=== PATIENT | female | born 1960 | race Caucasian/White ===

== ENCOUNTER 2016-09-20 11:53 | Emergency (ER) | payer BC ==
[~2016-09-20] VITALS: Ht 160 cm; Wt 78.0 kg
[2016-09-20 11:59] VITALS: TEMP 36.8; Ht 160 cm; Wt 78.0 kg
[2016-09-20] MEDS ORDERED: OXYMETAZOLINE HCL 0.05% NA SPR 15 ML BTL ONE (12:25)
[2016-09-20] MEDS ORDERED: SILVER NITR/POTASSIUM NITRATE APPLICATOR ONE (12:28)
--- NOTE | 2016-09-20 13:59 | EMERGENCY ROOM VISIT NOTE ---
History Report prepared by Loreibrakan: Zeke Byrne Under the Supervision of: Dr. Yony Alvarez M.D. First contact with patient: 12:20 Chief Complaint: NOSE BLEED (MINOR) Stated Complaint: NOSE BLEED, STARTED 6:30 PM 09/19/16 History of Present Illness The patient is a 55 year old female who presents to the Emergency Room with complaints of a constant nosebleed beginning yesterday. She states that it began bleeding 18 hours ago, stopped for awhile, and then started bleeding again. She has no history of nosebleeds, and is not on any blood thinners. The patient notes that she had a sinus infection and was on Cipro a little over a week ago. She also notes that she was blowing her nose frequently at this time. She states that she put ice on her nose, but nothing has improved her symptoms. The patient denies any lightheadedness. Source of History: patient Onset: Yesterday Position: nose Quality: other (bleeding) Timing: constant Modifying Factors (Relieving): other (none) Note: The patient denies any lightheadedness. Review of Systems See HPI for pertinent positives & negatives. A total of 6 systems reviewed and were otherwise negative. Past Medical & Surgical Medical Problems: (1) No Known Active Medical Problems Family History No pertinent family history stated. Social History Housing Status: lives with family Current/Historical Medications No Active Prescriptions or Reported Meds Allergies Coded Allergies: No Known Allergies (Unverified , 09/20/16) Physical Exam Vital Signs Date Time Temp Pulse Resp B/P Pulse Ox O2 Delivery O2 Flow Rate FiO2 09/20/16 14:05 89 20 142/90 92 09/20/16 13:43 80 20 128/85 94 Room Air 09/20/16 11:59 36.8 108 18 160/106 98 Physical Exam GENERAL: Patient is well appearing and in no acute distress. HEENT: No acute trauma, normocephalic atraumatic, mucous membranes moist, no scleral icterus. Erythematous, swollen vessel in the left anterior nasal septum. NECK: No stridor, no adenopathy, no meningismus, trachea is midline. LUNGS: No dyspnea. Clear to auscultation and equal bilaterally. No wheeze, no rhonchi. HEART: Regular rate and rhythm. No murmurs, rubs, gallops appreciated. EXTREMITIES: Normal motion all extremities, no cyanosis, no edema. NEUROLOGIC: Alert and oriented, no acute motor or sensory deficits, no focal weakness, cranial nerves grossly intact. SKIN: No rash, no jaundice, no diaphoresis. Medical Decision & Procedures Procedure Anterior Nasal Cauterization Indication: epistaxis Verbal consent obtained. Risks and benefits were explained with the usual customary discussion. A time out was taken. Silver nitrate was applied to the left anterior nasal septum. Water followed by Afrin was applied to the nasal septum. The patient tolerated this well. Hemostasis was achieved. No complications. ED Course 1220: The patient was evaluated in room C5. A complete history and physical exam was performed. 1225: Ordered Afrin 0.05% Nasal [place] and Silver Nitrate Applicators. 1235: I cauterized the patient's nose. See the procedure note for details. 1302: I checked in on the patient and removed her nasal clamp. She is no longer bleeding. 1358: Reevaluated the patient. She has had no further bleeding. Discussed results and discharge instructions: she verbalized understanding and agreement. The patient is ready for discharge. Medical Decision Differential: Anterior/Posterior Epistaxis, Coagulopathy, Trauma, Fracture, Septal Hematoma, amongst other pathologies entertained. 55 yr old female arrives with complaint of left nares epistaxis currently resolved. Looking she clearly has imitated vessel left anterior septum. Cauterized without issue. Monitored for an hour without further bleeding. Stable, no PMH and not on blood thinners without any other bleeding nor abnormal bruising.. Did just have sinus infection which likely is reason for this. Discussed home care and approach. Discussed symptoms requiring return to ED. Impression Primary Impression: Left-sided epistaxis Scribe Attestation The scribe's documentation has been prepared under my direction and personally reviewed by me in its entirety. I confirm that the note above accurately reflects all work, treatment, procedures, and medical decision making performed by me. Departure Information Dispostion Home / Self-Care Prescriptions No Active Prescriptions or Reported Meds Referrals Morgan Starks DO (PCP) Patient Instructions A Signature Page, ED Robert, My [facility]
[2016-09-20 14:05] VITALS: BP 142/90; PULSE 89; O2SAT 92
[2017-06-02] MEDS ORDERED: CPR500 OR (12:20)
[2017-06-02] MEDS ORDERED: TAMS0.4C38 PO (12:50)
[2017-06-07] MEDS ORDERED: CIPR-255 PO (13:29)
[2017-06-07] MEDS ORDERED: TAMS0.4C38 PO (13:29)
[2017-07-08] MEDS ORDERED: CEPH500C PO (12:20)
[2017-07-08] MEDS ORDERED: OXYC7.5T65 PO (12:20)
[2017-07-08] MEDS ORDERED: PHEN-775 PO (12:20)
== END 2016-09-20 14:19 | disposition home or self-care (01) ==
LOC: C.EDB 11:54 → C.EDC 14:19
DX: R04.0 Epistaxis (principal)

== ENCOUNTER 2017-05-30 21:19 | Inpatient (IN) | payer BC ==
[~2017-05-30] VITALS: Ht 162.6 cm; Wt 85.6 kg
[2017-05-30] MEDS ORDERED: ONDANSETRON INJ 2 MG/ML 2 ML VIAL ONE (21:44)
[2017-05-30] MEDS ORDERED: ACETAMINOPHEN IV 100 ML IV STA (21:47)
[2017-05-30] MEDS ORDERED: SODIUM CHLORIDE 0.9% 1000ML 1,000 ML IV STA (21:47)
[2017-05-30] MEDS ORDERED: ONDANSETRON INJ 2 MG/ML 2 ML VIAL IV STA ×2 (21:47→22:30)
[2017-05-30] MEDS ORDERED: MoRPHine SULFATE 4 MG/ML 1 ML CARP\\VIAL IV STA ×2 (21:47→22:30)
[2017-05-30 21:59] LABS: BASO % 0.3 %; BASO ABS # 0.04 K/uL (0-0.2); COMPLETE YES; EOS % 0.7 %; HEMATOCRIT 43.7 % (37-47); IG% 0.3 %; LYMPH % 17.5 %; MEAN CELL VOLUME 89.4 fL (80-100); MEAN CORPUSCULAR HEMOGLOBIN 29.2 pg (25-34); MEAN CORPUSCULAR HGB CONC 32.7 g/dl (32-36); MEAN PLATELET VOLUME 8.9 fL (7.4-10.4); MONO % 6.6 %; NEUT % 74.6 %; PLATELET COUNT 406 K/uL (130-400); RED BLOOD COUNT 4.89 M/uL (4.2-5.4); WHITE BLOOD COUNT 14.88 K/uL (4.8-10.8)
[2017-05-30 22:11] LABS: BUN/CREATININE RATIO 15.1 (10-20); CALCIUM 9.1 mg/dl (8.5-10.1); CREATININE 0.79 mg/dl (0.60-1.20); POTASSIUM 3.7 mmol/L (3.5-5.1)
--- NOTE | 2017-05-30 22:22 | DIAGNOSTIC IMAGING REPORT ---
ABD/PELVIS WITHOUT FOR STONE CT DOSE: 1059.16 mGy.cm HISTORY: Flank pain Flank pain, eval for stone TECHNIQUE: Multiaxial CT images of the abdomen and pelvis were performed without the use of intravenous and oral contrast according to the standard department stone protocol. A dose lowering technique was utilized adhering to the principles of ALARA. COMPARISON STUDY: 12/28/2007 FINDINGS: Lung bases are clear. Several left renal cysts. Fullness of the renal collecting systems bilaterally. Right-sided renal calcifications slightly increased in prominence from the prior study. Largest calcification within the renal pelvis measures 9 mm. Smaller calcifications lower aspect left kidney are present. Slight fullness of the right ureter as compared to the left. 3 mm calculus right ureterovesical junction. Bladder is midline with no additional calcifications. Bowel pattern is nonobstructive. Scattered colonic diverticuli with no evidence of diverticulitis. IMPRESSION: 1. Bilateral nephrocalcinosis slightly progressive as compared to the prior exam in size as well as number. 2. 3 mm obstructing calculus right ureterovesical junction with mild right hydroureteronephrosis. The above report was generated using voice recognition software. It may contain grammatical, syntax or spelling errors. Electronically signed by: Rubio Pathak M.D. 05/30/2017 10:20 PM Dictated Date/Time: 05/30/2017 10:16 PM
[2017-05-30] MEDS ORDERED: KETOROLAC TROMETHAMINE 30 MG/ML VIAL IV STA (22:30)
[2017-05-30] MEDS ORDERED: TAMSULOSIN HCL 0.4 MG CAP PO ONE (22:30)
--- NOTE | 2017-05-30 22:32 | EMERGENCY ROOM VISIT NOTE ---
History First contact with patient: 21:43 Chief Complaint: FLANK PAIN Stated Complaint: RIGHT SIDE & BACK PAIN, VOMITING History of Present Illness The patient is a 56 year old female who presents to the Emergency Room with complaints of right flank pain that started suddenly around 7pm today. She states she was not feeling well today and had some intermittent chills and nausea. Her right flank pain started suddenly, associated with severe nausea and intractable vomiting. She describes the pain as constant, sharp and stabbing, severe, starts in her right back and radiates around to her abdomen down toward her groin, 06/29. She tried taking some Pepto-Bismol for the nausea , which did not help. She did not take any other medications for her pain. She reports a history of kidney stones in the past, states this feels the same. She denies any fevers, headache, vision changes, neck pain, chest pain, shortness of breath, palpitations, dizziness or syncope, numbness or tingling, diarrhea or constipation, dysuria, urinary frequency, hematuria. Review of Systems A complete 10 point review of systems was reviewed with the patient with pertinent positives and negatives as per history of present illness. All else were negative. Past Medical/Surgical History Medical Problems: (1) Hydronephrosis due to obstruction of ureter (2) No Known Active Medical Problems (3) Pyelonephritis Social History Smoking Status: Never Smoker Housing Status: lives with family Current/Historical Medications Scheduled Levofloxacin (Levaquin), 750 MG PO DAILY Naproxen (Naprosyn), 500 MG PO BID Ondasetron Odt (Zofran Odt), 4 MG SL Q6H Tamsulosin Hcl (Flomax), 0.4 MG PO DAILY Scheduled PRN Oxycodone Ir (Roxicodone Ir), 1-2 TAB PO Q6H PRN for Severe Pain Physical Exam Vital Signs Date Time Temp Pulse Resp B/P (MAP) Pulse Ox O2 Delivery O2 Flow Rate FiO2 05/31/17 03:01 132/79 98 Room Air 05/31/17 03:00 75 18 05/31/17 02:49 64 05/31/17 02:42 130/73 05/31/17 01:00 70 18 132/96 95 Room Air 05/30/17 22:40 69 05/30/17 22:24 65 18 135/89 98 Room Air 05/30/17 21:23 36.4 72 24 123/80 99 Room Air Physical Exam CONSTITUTIONAL: No acute distress, but patient appears to be in significant pain and is actively vomiting. Mildly dehydrated. Alert and oriented X 4 with normal affect. HEENT: Normocephalic, atraumatic. Pupils equal, round and reactive to light, EOMI. TMs normal. Pharynx normal. Tacky mucous membranes. NECK: Supple, full active range of motion without discomfort. RESPIRATORY: Clear to auscultation bilaterally with no wheezing, crackles, rhonchi or stridor. Equal expansion bilaterally. CARDIOVASCULAR: Regular rate and rhythm with no murmurs, rubs or gallops. Normal peripheral perfusion. No edema. GASTROINTESTINAL: Moderate tenderness of the right upper and lower quadrant and flank, right CVA tenderness. Abdomen is soft and nondistended. Bowel sounds present in all quadrants. MUSCULOSKELETAL: Full range of motion of all joints without discomfort. INTEGUMENTARY: No rash or other significant dermatologic conditions noted. NEUROLOGIC: Cranial nerves II-XII grossly intact. No focal neurologic deficits noted. Normal strength, normal sensation, normal gait, normal coordination, normal speech. Medical Decision & Procedures ER Provider Diagnostic Interpretation: ABD/PELVIS WITHOUT FOR STONE CT DOSE: 1059.16 mGy.cm HISTORY: Flank pain Flank pain, eval for stone TECHNIQUE: Multiaxial CT images of the abdomen and pelvis were performed without the use of intravenous and oral contrast according to the standard department stone protocol. A dose lowering technique was utilized adhering to the principles of ALARA. COMPARISON STUDY: 12/28/2007 FINDINGS: Lung bases are clear. Several left renal cysts. Fullness of the renal collecting systems bilaterally. Right-sided renal calcifications slightly increased in prominence from the prior study. Largest calcification within the renal pelvis measures 9 mm. Smaller calcifications lower aspect left kidney are present. Slight fullness of the right ureter as compared to the left. 3 mm calculus right ureterovesical junction. Bladder is midline with no additional calcifications. Bowel pattern is nonobstructive. Scattered colonic diverticuli with no evidence of diverticulitis. IMPRESSION: 1. Bilateral nephrocalcinosis slightly progressive as compared to the prior exam in size as well as number. 2. 3 mm obstructing calculus right ureterovesical junction with mild right hydroureteronephrosis. Laboratory Results Test 05/30/17 21:45 05/31/17 00:02 Total Bilirubin 0.5 mg/dl (0.2-1) Direct Bilirubin 0.1 mg/dl (0-0.2) Aspartate Amino Transf (AST/SGOT) 18 U/L (15-37) Alanine Aminotransferase (ALT/SGPT) 28 U/L (12-78) Alkaline Phosphatase 76 U/L (45-117) Total Protein 7.7 gm/dl (6.4-8.2) Albumin 3.8 gm/dl (3.4-5.0) Lipase 235 U/L (73-393) Urine Color YELLOW Urine Appearance CLEAR (CLEAR) Urine pH 5.0 (4.5-7.5) Urine Specific [place] 1.022 (1.000-1.030) Urine Protein NEG (NEG) Urine Glucose (UA) NEG (NEG) Urine Ketones TRACE (NEG) Urine Occult Blood 1+ (NEG) Urine Nitrite POS (NEG) Urine Bilirubin NEG (NEG) Urine Urobilinogen NEG (NEG) Urine Leukocyte Esterase SMALL (NEG) Urine WBC (Auto) >30 /hpf (0-5) Urine RBC (Auto) 0-4 /hpf (0-4) Urine Hyaline Casts (Auto) 1-5 /lpf (0-5) Urine Epithelial Cells (Auto) 10-20 /lpf (0-5) Urine Bacteria (Auto) 4+ (NEG) Medications Administered Medications (Trade) Dose Ordered Sig/Dipesh Route Start Time Stop Time Status Last Admin Dose Admin Ondansetron HCl (Zofran Inj) 4 mg STK-MED ONCE .ROUTE 05/30/17 21:44 05/30/17 21:45 DC 05/30/17 21:57 4 MG Sodium Chloride 1,000 ml @ 999 mls/hr Q1H1M STAT IV 05/30/17 21:47 05/30/17 22:47 DC 05/30/17 21:47 999 MLS/HR Morphine Sulfate (MoRPHine SULFATE INJ) 4 mg NOW STAT IV 05/30/17 21:47 05/30/17 21:49 DC 05/30/17 21:57 4 MG Acetaminophen 100 ml @ 400 mls/hr NOW STAT IV 05/30/17 21:47 05/30/17 22:01 DC 05/30/17 21:56 400 MLS/HR Ondansetron HCl (Zofran Inj) 4 mg NOW STAT IV 05/30/17 22:30 05/30/17 22:31 DC 05/30/17 22:35 4 MG Ketorolac Tromethamine (Toradol Inj) 15 mg NOW STAT IV 05/30/17 22:30 05/30/17 22:31 DC 05/30/17 22:36 15 MG Morphine Sulfate (MoRPHine SULFATE INJ) 4 mg NOW STAT IV 05/30/17 22:30 05/30/17 22:31 DC 05/30/17 22:35 4 MG Tamsulosin HCl (Flomax Cap) 0.4 mg NOW ONCE PO 05/30/17 22:30 05/30/17 22:31 DC 05/30/17 22:35 0.4 MG Levofloxacin (Levaquin / D5W) 750 mg NOW STAT IV 05/31/17 01:23 05/31/17 01:24 DC 05/31/17 01:44 750 MG Morphine Sulfate (MoRPHine SULFATE INJ) 4 mg NOW STAT IV 05/31/17 01:40 05/31/17 01:41 DC 05/31/17 01:44 4 MG Promethazine HCl (Phenergan Inj) 25 mg NOW STAT IM 05/31/17 03:07 05/31/17 03:08 DC 05/31/17 03:24 25 MG Sodium Chloride 1,000 ml @ 999 mls/hr Q1H1M STAT IV 05/31/17 03:49 05/31/17 04:49 DC 05/31/17 04:51 999 MLS/HR ECG Indication: abdominal pain, vomiting Rate (beats per minute): 64 Rhythm: normal sinus Findings: no acute ischemic change, no ectopy, other (normal EKG) Comparison ECG Date: no prior available Medical Decision CC: Patient presenting with complaint of right flank pain, nausea and vomiting Interpretation of Labs: Leukocytosis, no anemia, no significant electrolyte abnormalities, normal renal function, normal liver enzymes and lipase. UA pending. Differential Diagnosis: Includes, but not limited to kidney stone, ureteral colic, UTI, pyelonephritis, cholecystitis, cholelithiasis, choledocholithiasis, pancreatitis, appendicitis, AAA. Medication Reconciliation: I attest that I have personally reviewed the patient' s current medication list. Vital signs review: I reviewed the patient's vital signs and interpret them as follows: T: Afebrile; BP: Normotensive; HR: Within normal limits; RR: Tachypneic; Pulse Ox: Within normal limits on room air. Blood pressure screening: The patient was found to have normal blood pressure on screening and does not require follow-up for repeat blood pressure check. Summary: Patient was evaluated at bedside, history of physical exam performed. Patient is alert and in no acute distress but is very uncomfortable and actively vomiting. She is rocking in the stretcher, unable to get comfortable. She has moderate right-sided abdominal and flank pain, right CVA tenderness. Patient's symptoms and colicky pain consistent with possible ureteral stone, especially given her history of this in the past Orders were placed at bedside for labs, UA, IV fluids for hydration, IV morphine and Tylenol for pain, IV Zofran for nausea, CT abdomen/pelvis without contrast to evaluate for ureteral stone. Patient discussed with Dr. Leger, who agrees with my assessment and plan. Labs reviewed as above, notable for leukocytosis, which may be related to patient's severe episodes of vomiting, though cannot fully rule out possible infection. Urinalysis pending. No other acute lab abnormalities. CT imaging reviewed, reveals a 3 mm obstructing distal stone on the right side, correlating to patient's symptoms. Nursing notified me that patient was still having 8/10 pain and vomiting again. Second dose of IV morphine, IV Zofran ordered, as well as IV Toradol. She was also given PO Flomax. Patient reassessed multiple times throughout ED stay, she is much improved after second dosing of medications. She states she feels well enough to go home and would prefer to be discharged. I discussed all results with the patient and the plan for follow-up. Prescriptions for pain meds, Zofran, and Flomax sent to the pharmacy. Patient to be discharged home with a urine straining. Still awaiting urine sample from patient, I asked her to provide this again. Patient signed out to Jennifer Rodas PA-C, to follow up on UA. Patient will most likely be discharged home if UA is negative and she remains with symptoms well controlled. If she has concern for UTI/pyelonephritis, or continues to have severe pain or nausea/vomiting, I would consider admission. Impression Primary Impression: Right ureteral calculus Departure Information Dispostion Home / Self-Care Condition GOOD Prescriptions Levofloxacin (Levaquin) 750 Mg Tab 750 MG PO DAILY for 5 Days, #5 TAB Prov: Veronica Rodas PA-C 05/31/17 Naproxen (Naprosyn) 500 Mg Tab 500 MG PO BID for 7 Days, #14 TAB Prov: Jo Wooten CRNP 05/30/17 Tamsulosin Hcl (FLOMAX) 0.4 Mg Cap 0.4 MG PO DAILY for 7 Days, #7 CAP Prov: Jo Wooten CRNP 05/30/17 Ondasetron Odt (ZOFRAN ODT) 4 Mg Tab 4 MG SL Q6H for Nausea, #10 TAB Prov: Jo Wooten CRNP 05/30/17 Oxycodone Ir (Roxicodone Ir) 5 Mg Tab 1-2 TAB PO Q6H Y for Severe Pain for 3 Days, #24 TAB Prov: Jo Wooten CRNP 05/30/17 Referrals Morgan Starks DO (PCP) Kapil Stevens D.O. Patient Instructions ED Stone Renal [facility] Additional Instructions You have been treated in the Emergency Department today for a Kidney Stone ( Nephrolithiasis). You have received pain medicine in the emergency department which impairs your ability to operate a vehicle. It is illegal for you to drive after receiving these medicines. You have been prescribed oxycodone to be used for severe pain. This is a narcotic medication. You cannot drive or consume alcohol while on this medicine. This medicine should only be used for pain that cannot be controlled with the Naprosyn. You have been prescribed Naprosyn 500 mg 1 tablet every 12 hours for the pain. You should take this for the next several days to help manage your pain. Do not take any other NSAIDs while you're taking this medication. You have been prescribed Zofran to be used for any nausea or vomiting. Take as prescribed. You have been prescribed Flomax 0.4 mg to be taken ONCE daily. This medicine has been prescribed as it can help relax the smooth muscles of the urinary tract increasing transit time of the kidney stone. For additional pain control, you can use the following [id number] medicines (if >12 yo): - Regular strength (325mg/tab) Tylenol (acetaminophen) 2 tabs every 4-6 hours as needed. Do not exceed 12 tablets in a 24 hour period. Avoid taking more than 4 grams (4000 mg) of Tylenol per day. This includes any other sources of acetaminophen you may take on a regular basis. You have been provided a strainer and specimen collection cup. You should strain your urine to collect any passed stones. Your stones can be placed into the specimen cup and taken to your Urologist for further evaluation. You have been provided the contact information for the on-call Urologist. You should contact the Urologist's office tomorrow to establish a follow-up appointment from today's Emergency Department visit. Return to the Emergency Department if your symptoms persist despite the treatment plan outlined above or if you develop the following symptoms: Severe pain that is not manageable with pain medication, fevers/chills, if you are unable to urinate for more than 8 hours, or for large amounts of blood in your urine.
[2017-05-30] MEDS ORDERED: NAPR-1169 PO (23:24)
[2017-05-30] MEDS ORDERED: OXYC1TAB3 PO (23:24)
[2017-05-30] MEDS ORDERED: TAMS0.4C38 PO (23:24)
[2017-05-30] MEDS ORDERED: ONDA4TAB10 SL (23:24)
[2017-05-31] VITALS (17 sets, daily range): BP systolic 68–123; BP diastolic 36–74; PULSE 89–118; TEMP 36.8–38.5; O2SAT 91–98; Ht 162.6 cm; Wt 85.6 kg
[2017-05-31] MEDS ORDERED: ONDANSETRON HOME PACK 4MG OD TAB PO ONE
[2017-05-31] MEDS ORDERED: OXYCODONE IR HOME PACK PO ONE
[2017-05-31 00:26] LABS: URINE APPEARANCE CLEAR (CLEAR); URINE BILIRUBIN NEG (NEG); URINE COLOR YELLOW; URINE NITRITE POS (NEG); URINE SPECIFIC GRAVITY 1.022 (1.000-1.030); UROBILINOGEN NEG (NEG); ZZUR CULT IF INDIC CLEAN CATCH YES
[2017-05-31 00:27] LABS: MANUAL MICROSCOPIC REQUIRED? NO; REVIEW REQ? NO
[2017-05-31] MEDS ORDERED: LEVAQUIN 750MG / 150ML D5W IV STA (01:23)
--- NOTE | 2017-05-31 01:33 | EMERGENCY ROOM VISIT NOTE ---
ED Visit Note First contact with patient: 00:33 The patient was signed out to me at shift change by Jo WHATLEY please see her dictation for additional details and hospital course. Briefly, the patient presents with flank pain. She appears to have a 3 mm right-sided kidney stone at the UVJ with hydronephrosis. At the time of sign out, a urinalysis was pending. The urinalysis was returned and suggests urinary tract infection. I discussed the case with Dr. Stevens of urology. He recommends giving a dose of IV antibiotics, putting her on antibiotics and having very close follow-up as an outpatient. I reassessed the patient. I did order IV Levaquin. She did request additional pain medication and was given 4 mg IV morphine. Home packs were ordered already. Levaquin will be added to the prescriptions. The patient was offered admission but declines. She states she would like to go home. She felt as though her symptoms were well controlled enough. The patient was reevaluated. She continued to have multiple episodes of emesis despite being given multiple doses of antiemetics. I am concerned that the patient will not be able to tolerate the oral antibiotics. The patient is agreeable to stay in the hospital. The case was discussed with the hospitalist service and they will evaluate the patient. 05/30/17 21:45 Red Blood Count 4.89, Mean Corpuscular Volume 89.4, Mean Corpuscular Hemoglobin 29.2, Mean Corpuscular Hemoglobin Concent 32.7, Mean Platelet Volume 8.9, Neutrophils (%) (Auto) 74.6, Lymphocytes (%) (Auto) 17.5, Monocytes (%) (Auto) 6.6, Eosinophils (%) (Auto) 0.7, Basophils (%) (Auto) 0.3, Neutrophils # (Auto) 11.12, Lymphocytes # (Auto) 2.60, Monocytes # (Auto) 0.98, Eosinophils # (Auto) 0.10, Basophils # (Auto) 0.04 05/30/17 21:45 Test 05/30/17 21:45 05/31/17 00:02 White Blood Count 14.88 K/uL (4.8-10.8) Red Blood Count 4.89 M/uL (4.2-5.4) Hemoglobin 14.3 g/dL (12.0-16.0) Hematocrit 43.7 % (37-47) Mean Corpuscular Volume 89.4 fL (80-100) Mean Corpuscular Hemoglobin 29.2 pg (25-34) Mean Corpuscular Hemoglobin Concent 32.7 g/dl (32-36) Platelet Count 406 K/uL (130-400) Mean Platelet Volume 8.9 fL (7.4-10.4) Neutrophils (%) (Auto) 74.6 % Lymphocytes (%) (Auto) 17.5 % Monocytes (%) (Auto) 6.6 % Eosinophils (%) (Auto) 0.7 % Basophils (%) (Auto) 0.3 % Neutrophils # (Auto) 11.12 K/uL (1.4-6.5) Lymphocytes # (Auto) 2.60 K/uL (1.2-3.4) Monocytes # (Auto) 0.98 K/uL (0.11-0.59) Eosinophils # (Auto) 0.10 K/uL (0-0.5) Basophils # (Auto) 0.04 K/uL (0-0.2) RDW Standard Deviation 41.0 fL (36.4-46.3) RDW Coefficient of Variation 12.6 % (11.5-14.5) Immature Granulocyte % (Auto) 0.3 % Immature Granulocyte # (Auto) 0.04 K/uL (0.00-0.02) Anion Gap 9.0 mmol/L (3-11) Est Creatinine Clear Calc Drug Dose 79.8 ml/min Estimated GFR () 96.3 Estimated GFR (Non- 83.1 BUN/Creatinine Ratio 15.1 (10-20) Calcium Level 9.1 mg/dl (8.5-10.1) Total Bilirubin 0.5 mg/dl (0.2-1) Direct Bilirubin 0.1 mg/dl (0-0.2) Aspartate Amino Transf (AST/SGOT) 18 U/L (15-37) Alanine Aminotransferase (ALT/SGPT) 28 U/L (12-78) Alkaline Phosphatase 76 U/L (45-117) Total Protein 7.7 gm/dl (6.4-8.2) Albumin 3.8 gm/dl (3.4-5.0) Lipase 235 U/L (73-393) Urine Color YELLOW Urine Appearance CLEAR (CLEAR) Urine pH 5.0 (4.5-7.5) Urine Specific [place] 1.022 (1.000-1.030) Urine Protein NEG (NEG) Urine Glucose (UA) NEG (NEG) Urine Ketones TRACE (NEG) Urine Occult Blood 1+ (NEG) Urine Nitrite POS (NEG) Urine Bilirubin NEG (NEG) Urine Urobilinogen NEG (NEG) Urine Leukocyte Esterase SMALL (NEG) Urine WBC (Auto) >30 /hpf (0-5) Urine RBC (Auto) 0-4 /hpf (0-4) Urine Hyaline Casts (Auto) 1-5 /lpf (0-5) Urine Epithelial Cells (Auto) 10-20 /lpf (0-5) Urine Bacteria (Auto) 4+ (NEG)
[2017-05-31] MEDS ORDERED: MoRPHine SULFATE 4 MG/ML 1 ML CARP\\VIAL IV STA (01:40)
[2017-05-31] MEDS ORDERED: LEVO1TAB35 PO (01:47)
[2017-05-31] MEDS ORDERED: PROMETHAZINE HCL INJ 25 MG/ML 1 ML VIAL IM STA (03:07)
[2017-05-31] MEDS ORDERED: SODIUM CHLORIDE 0.9% 1000ML 1,000 ML IV STA ×2 (03:49→19:30)
[2017-05-31] MEDS ORDERED: MoRPHine SULFATE 2 MG/ML CARP IV PRN (04:00)
[2017-05-31] MEDS ORDERED: ONDANSETRON INJ 2 MG/ML 2 ML VIAL IV PRN ×2 (04:00→22:15)
[2017-05-31] MEDS ORDERED: PROMETHAZINE HCL INJ 12.5 MG in SODIUM CHLORIDE 0.9% 50ML 50 ML IV PRN (04:00)
--- NOTE | 2017-05-31 04:06 | History and Physical ---
History & Physical Date & Time of Service: May 31, 2017 at 03:41 Chief Complaint: Right Side & Back Pain, Vomiting Primary Care Physician: Morgan Starks DO History of Present Illness Source: patient, clinic records, hospital records Mrs Lopez is a 56 year old female who presented to the Emergency Room with chills and flank pain. She woke up with chills yesterday morning, intermittently continued to experience chills throughout the day. Around 7pm she had sudden onset right flank pain with radiation to her suprapubic area and groin. Severity 10/10 pain. Associated with nausea and vomiting. Moving continuously to try and get into a more comfortable position. Sharp, stabbing pain. She had a kidney stone which passed spontaneously 6 years previously. She denies any dysuria, change in frequency, smell or color of her urine. She denies any chest pain, shortness of breath, abdominal pain, diarrhea, constipation, palpitations, dizziness or syncope. While in the ER she was given Zofran and Phenergan but has continued to feel nauseous and vomited. Her case was discussed with Dr Stevens (Urology) by the Jennifer Rodas PA-C and advised patient can go home if tolerating oral medications with close follow up. Since she continues to have nausea and vomiting she was referred to the medicine service for admission. Past Medical/Surgical History Past Medical History Nephrolithiasis Past Surgical History Cholecystectomy Family History Noncontributory Social History Smoking Status: Never Smoker Smokeless Tobacco Use: No Alcohol Use: none Drug Use: none Marital Status: Housing status: lives with significant other Occupational Status: retired ([employer]) Immunizations History of Tetanus Vaccine?: Unknown History of Pneumococcal: No History of Hepatitis B Vaccine: Unknown Multi-Drug Resistant Organisms History of MDRO: No Allergies Coded Allergies: No Known Allergies (Unverified , 06/07/17) Home Medications Scheduled Ciprofloxacin Hcl (Cipro), 500 MG PO BID Tamsulosin Hcl (Flomax), 0.4 MG PO QAM Review of Systems Constitutional: + chills, No fever Eyes: No worsening of vision, No eye pain, No redness, No diplopia ENT: No hearing loss, No nasal symptoms, No sore throat Respiratory: No cough, No sputum, No wheezing, No shortness of breath Cardiovascular: No chest pain, No orthopnea, No PND, No edema, No claudication , No palpitations Abdomen: + nausea, + vomiting, No pain, No diarrhea, No constipation, No GI bleeding Musculoskeletal: No joint pain, No muscle pain, No swelling, No calf pain Genitourinary - Female: No dysuria, No urinary frequency, No urinary urgency, No urinary incontinence, No urinary retention Neurologic: No weakness (no focal), No numbness/tingling Endocrine: No fatigue, No excessive thirst, No excessive urination Hematologic / Lymphatic: No abnormal bleeding/bruising Integumentary: No rash, No itch Physical Exam Vital Signs Date Time Temp Pulse Resp B/P (MAP) Pulse Ox O2 Delivery O2 Flow Rate FiO2 05/31/17 03:01 132/79 98 Room Air 05/31/17 03:00 75 18 05/31/17 02:49 64 05/31/17 02:42 130/73 05/31/17 01:00 70 18 132/96 95 Room Air 05/30/17 22:40 69 05/30/17 22:24 65 18 135/89 98 Room Air 05/30/17 21:23 36.4 72 24 123/80 99 Room Air General Appearance: WD/WN, + mild distress (chills) Head: normocephalic, atraumatic Eyes: normal inspection, PERRL, EOMI ENT: normal ENT inspection Neck: supple, no JVD, trachea midline Respiratory/Chest: chest non-tender, lungs clear, normal breath sounds, no respiratory distress, no accessory muscle use Cardiovascular: regular rate, rhythm, no edema, no murmur, normal peripheral pulses Abdomen/GI: normal bowel sounds, non tender, soft Back: + right CVA tenderness Extremities/Musculoskelatal: no calf tenderness, normal capillary refill, no pedal edema Neurologic/Psych: head concierge II-XII nml as tested, no motor/sensory deficits, alert, oriented x 3 Skin: normal color, warm/dry, no rash Diagnostics Laboratory Results Results Past 24 Hours Test 05/30/17 21:45 05/31/17 00:02 Range/Units White Blood Count 14.88 4.8-10.8 K/uL Red Blood Count 4.89 4.2-5.4 M/uL Hemoglobin 14.3 12.0-16.0 g/dL Hematocrit 43.7 37-47 % Mean Corpuscular Volume 89.4 80-100 fL Mean Corpuscular Hemoglobin 29.2 25-34 pg Mean Corpuscular Hemoglobin Concent 32.7 32-36 g/dl Platelet Count 406 130-400 K/uL Mean Platelet Volume 8.9 7.4-10.4 fL Neutrophils (%) (Auto) 74.6 % Lymphocytes (%) (Auto) 17.5 % Monocytes (%) (Auto) 6.6 % Eosinophils (%) (Auto) 0.7 % Basophils (%) (Auto) 0.3 % Neutrophils # (Auto) 11.12 1.4-6.5 K/uL Lymphocytes # (Auto) 2.60 1.2-3.4 K/uL Monocytes # (Auto) 0.98 0.11-0.59 K/uL Eosinophils # (Auto) 0.10 0-0.5 K/uL Basophils # (Auto) 0.04 0-0.2 K/uL RDW Standard Deviation 41.0 36.4-46.3 fL RDW Coefficient of Variation 12.6 11.5-14.5 % Immature Granulocyte % (Auto) 0.3 % Immature Granulocyte # (Auto) 0.04 0.00-0.02 K/uL Sodium Level 140 136-145 mmol/L Potassium Level 3.7 3.5-5.1 mmol/L Chloride Level 107 98-107 mmol/L Carbon Dioxide Level 24 21-32 mmol/L Anion Gap 9.0 3-11 mmol/L Blood Urea Nitrogen 12 7-18 mg/dl Creatinine 0.79 0.60-1.20 mg/dl Est Creatinine Clear Calc Drug Dose 79.8 ml/min Estimated GFR () 96.3 Estimated GFR (Non- 83.1 BUN/Creatinine Ratio 15.1 10-20 Random Glucose 106 70-99 mg/dl Calcium Level 9.1 8.5-10.1 mg/dl Total Bilirubin 0.5 0.2-1 mg/dl Direct Bilirubin 0.1 0-0.2 mg/dl Aspartate Amino Transf (AST/SGOT) 18 15-37 U/L Alanine Aminotransferase (ALT/SGPT) 28 12-78 U/L Alkaline Phosphatase 76 45-117 U/L Total Protein 7.7 6.4-8.2 gm/dl Albumin 3.8 3.4-5.0 gm/dl Lipase 235 73-393 U/L Urine Color YELLOW Urine Appearance CLEAR CLEAR Urine pH 5.0 4.5-7.5 Urine Specific [place] 1.022 1.000-1.030 Urine Protein NEG NEG Urine Glucose (UA) NEG NEG Urine Ketones TRACE NEG Urine Occult Blood 1+ NEG Urine Nitrite POS NEG Urine Bilirubin NEG NEG Urine Urobilinogen NEG NEG Urine Leukocyte Esterase SMALL NEG Urine WBC (Auto) >30 0-5 /hpf Urine RBC (Auto) 0-4 0-4 /hpf Urine Hyaline Casts (Auto) 1-5 0-5 /lpf Urine Epithelial Cells (Auto) 10-20 0-5 /lpf Urine Bacteria (Auto) 4+ NEG Microbiology Results 05/31/17 Urine Culture, Received Pending Diagnostic Radiology ABD/PELVIS WITHOUT FOR STONE CT DOSE: 1059.16 mGy.cm HISTORY: Flank pain Flank pain, eval for stone TECHNIQUE: Multiaxial CT images of the abdomen and pelvis were performed without the use of intravenous and oral contrast according to the standard department stone protocol. A dose lowering technique was utilized adhering to the principles of ALARA. COMPARISON STUDY: 12/28/2007 FINDINGS: Lung bases are clear. Several left renal cysts. Fullness of the renal collecting systems bilaterally. Right-sided renal calcifications slightly increased in prominence from the prior study. Largest calcification within the renal pelvis measures 9 mm. Smaller calcifications lower aspect left kidney are present. Slight fullness of the right ureter as compared to the left. 3 mm calculus right ureterovesical junction. Bladder is midline with no additional calcifications. Bowel pattern is nonobstructive. Scattered colonic diverticuli with no evidence of diverticulitis. IMPRESSION: 1. Bilateral nephrocalcinosis slightly progressive as compared to the prior exam in size as well as number. 2. 3 mm obstructing calculus right ureterovesical junction with mild right hydroureteronephrosis. The above report was generated using voice recognition software. It may contain grammatical, syntax or spelling errors. Electronically signed by: Rubio Pathak M.D. 05/30/2017 10:20 PM Dictated Date/Time: 05/30/2017 10:16 PM EKG Rate 64 bpm No ischemic changes Normal EKG, No prior EKG available Impression Assessment and Plan 56 yo F with right renal stone, complicated UTI and intractable nausea and vomiting Renal colic - Pain control with acetaminophen, morphine - Urology consult in morning - Start on tamsulosin Complicated UTI/pyelonephritis - obstructing stone with hydronephrosis and CVA tenderness - blood cultures x2 given WBC elevated and having chills - broaden coverage with Zosyn VTE Prophylaxis - defer chemical prophylaxis pending urology consult and possible need for procedure - SCDs and TEDs Code - Full Disposition - admit to med/surge for pyelonephritis with obstructing right stone Attending Addendum: I have physically seen and examined this patient, have directed the resident's medical activities, and agree with the H&P as noted above with the following exceptions as noted. The patient is awake, alert and oriented 3, well-developed and well-nourished , normocephalic and atraumatic, lying in bed and in mild distress. HEENT--PERRL, EOMI, mucous membranes and oropharynx dry. Neck--supple, no JVD or bruits, thyroid normal, trachea midline, no adenopathy. Heart--normal S1 and S2, no extra beats, no murmurs, rubs or gallops. Lungs--clear bilaterally with good air movement, no respiratory distress, no accessory muscle use. Abdomen--normal bowel sounds and soft, mild tenderness right flank and lower abdomen. Nondistended, no hernias or masses, no organomegaly. Extremities--no cyanosis, clubbing or edema. There are good distal pulses b/l. Dermatologic--normal skin turgor, normal color, warm and dry, no abnormal lymph nodes, no rash. Neurologic--cranial nerves II through XII grossly intact, motor and sensory examination normal. Rheumatologic--normal range of motion, nontender, muscles and joints. Psychiatric--normal affect. Assessment and Plan: 1. Complicated pyelonephritis secondary to obstructing right renal calculus-- Nothing by mouth except meds after midnight. Start tamsulosin 0.4 mg by mouth at bedtime. Zosyn 3.375 mg IV every 8 hours. Morphine sulfate 4 mg IV every 2 hours when necessary severe pain. Follow urine culture and sensitivities, and blood cultures. Consult urology. Level of Care Med/Surg Advanced Directives Existing Advance Directive: No Existing Living Will: No Existing Power of Transitional Nurse: No Resuscitation Status FULL RESUSCITATION VTE Prophylaxis VTE Risk Assessment Done? Y/N: Yes Risk Level: Moderate Given or contraindicated: T.E.D. Stockings, SCD's Social Service Consult None Apply Additional Copies To Morgan Starks, DO Resident Tracking Resident Involvement: Resident Care Provided Care Provided: Adult Hospital Medicine
[2017-05-31] MEDS ORDERED: ACETAMINOPHEN IV 650 MG in EMPTY BAG 0 ML IV STA (04:09)
[2017-05-31] MEDS ORDERED: PIPERACILLIN/TAZOBACTAM 3.375 GM/100ML D5W IV STA (04:15)
[2017-05-31 04:23] LABS: BASO % 0.1 %; BASO ABS # 0.01 K/uL (0-0.2); COMPLETE YES; HEMATOCRIT 40.6 % (37-47); IG% 0.6 %; LYMPH ABS # 0.28 K/uL (1.2-3.4); MEAN CELL VOLUME 90.2 fL (80-100); MEAN CORPUSCULAR HEMOGLOBIN 30.2 pg (25-34); MEAN CORPUSCULAR HGB CONC 33.5 g/dl (32-36); MEAN PLATELET VOLUME 8.7 fL (7.4-10.4); MONO % 0.3 %; PLATELET COUNT 288 K/uL (130-400); WHITE BLOOD COUNT 9.33 K/uL (4.8-10.8)
[2017-05-31 04:42] LABS: BUN/CREATININE RATIO 10.9 (10-20); CALCIUM 8.1 mg/dl (8.5-10.1); CREATININE 1.2 mg/dl (0.60-1.20); POTASSIUM 3.8 mmol/L (3.5-5.1)
[2017-05-31] MEDS ORDERED: PIPERACILL/TAZOBAC CONSULT ACTIVE PRN ×2 (05:15→21:00)
--- NOTE | 2017-05-31 07:39 | Urology Consultation ---
History General Date of Service: May 31, 2017. Chief Complaint: Stone, Renal Colic, Nausea Primary Care Physician: Morgan Starks, DO Pt seen a urologist before?: No HPI - Stones Location: right, UVJ Pain: inguinal, right flank, constant, intermittent Patient has: + nausea ER Visits: number (1) Additional Comments: Right flank pain radiating to groin. Now suprapubic. Severe with nausea and vomiting. Slight elevation of WBC. Urine with blood. Previous stone years ago passed over few days. [address] with hydronephrosis. Patient feels pain has improved. No vomiting this am. continued nausea, but improved. Imaging Imaging: CT Images were done at: in house. Reviewed and interpreted by myself. Laboratory Labs were reviewed and are within normal limits unless listed below. Labs are available in the chart and at [facility] Problem List Medical Problems: (1) Left-sided epistaxis Status: Acute (2) Right ureteral calculus Status: Acute Past History kidney stones, urinary tract infection Family History No fam history of stone Social History Hx Tobacco Use In Past Year?: No Marital status: Housing status: lives with significant other Occupation status: retired ([employer]) History of MDRO No Allergies Coded Allergies: No Known Allergies (Unverified , 05/30/17) Medications Home Medications: Home Meds and Scripts Medications Dose Route/Sig Max Daily Dose Days Date Category Levaquin (Levofloxacin) 750 Mg Tab 750 Mg PO DAILY 5 05/31/17 Rx Naprosyn (Naproxen) 500 Mg Tab 500 Mg PO BID 7 05/30/17 Rx Flomax (Tamsulosin Hcl) 0.4 Mg Cap 0.4 Mg PO DAILY 7 05/30/17 Rx Zofran Odt (Ondansetron HCl) 4 Mg Tab 4 Mg SL Q6H 05/30/17 Rx Roxicodone Ir (Oxycodone HCl) 5 Mg Tab 1-2 Tab PO Q6H PRN 3 05/30/17 Rx Inpatient Medications: Current Inpatient Medications Medications (Trade) Dose Ordered Sig/Dipesh Route Start Time Stop Time Status Last Admin Dose Admin Ondansetron HCl (Zofran Inj) 4 mg Q6H PRN IV 05/31/17 04:00 06/30/17 03:59 Acetaminophen 650 mg/Empty Bag 65 ml @ 260 mls/hr Q6H PRN IV 05/31/17 04:00 06/30/17 03:59 Promethazine HCl 12.5 mg/Sodium Chloride 50.5 ml @ 204 mls/hr Q6H PRN IV 05/31/17 04:00 06/30/17 03:59 Morphine Sulfate (MoRPHine SULFATE INJ) 2 mg Q2H PRN IV 05/31/17 04:00 06/14/17 03:59 Piperacillin Sod/ Tazobactam Sod 3.375 gm/Dextrose 115 ml @ 28.75 mls/ hr Q8H IV 05/31/17 10:00 06/10/17 09:59 Tamsulosin HCl (Flomax Cap) 0.4 mg QAM PO 05/31/17 09:00 06/30/17 08:59 Piperacillin Sod/ Tazobactam Sod (Consult) 1 ea UD PRN N/A 05/31/17 05:15 06/30/17 05:14 Review of Systems Review of Systems All Other Systems: Reviewed and Negative Additional Comments: All reviewed. Please see HPI for pertinent positives and negatives. Physical Exam Vital Signs: Vital Signs Past 12 Hours Date Time Temp Pulse Resp B/P (MAP) Pulse Ox O2 Delivery O2 Flow Rate FiO2 05/31/17 07:12 37.2 89 17 91 Room Air 05/31/17 05:05 37.0 90 16 123/74 96 Room Air 05/31/17 04:57 86 18 133/77 98 05/31/17 03:01 132/79 98 Room Air 05/31/17 03:00 75 18 05/31/17 02:49 64 05/31/17 02:42 130/73 05/31/17 01:00 70 18 132/96 95 Room Air 05/30/17 22:40 69 05/30/17 22:24 65 18 135/89 98 Room Air 05/30/17 21:23 36.4 72 24 123/80 99 Room Air Physical Exam: General Appearance: WD/WN, no apparent distress Eyes: bilateral eyes normal inspection, bilateral eyes PERRL, bilateral eyes EOMI ENT: normal ENT inspection, hearing grossly normal Neck: supple, no JVD Respiratory/Chest: no respiratory distress, no accessory muscle use Cardiovascular: regular rate, rhythm Gastrointestinal: Abdomen: normal abdomen Bladder: normal bladder, tender Renal: cva tenderness Extremities: normal range of motion, non-tender, normal inspection, no pedal edema Neurologic/Psychiatric: employee relations assistant II-XII nml as tested, no motor/sensory deficits, alert, normal mood/affect, oriented x 3 Skin: normal color, warm/dry, no rash Lymphatic: no adenopathy Assessment & Plan Assessment & Plan 1. Right UVJ Stone 2. Renal Colic 3. Nausea/Vomiting 4. UTI Patient improved this am. Hydration via IV with IV abx and antiemtics. Tolerating pain. Improved overall. Can attempt diet this morning if overall improved. Hydrate and max expulsion therapy with flomax and symptom control. Attempt trial of passage. If worsen or develop fever can place stent. If improved can d/c home with plan to follow up in 2 weeks to assess passage. Continue Abx for possible uti and wait culture.
[2017-05-31] MEDS: SODIUM CHLORIDE 0.9% 1000ML 1,000 ML IV SCH ×3 (09:04→21:05)
[2017-05-31] MEDS ORDERED: PIPERACILL/TAZOBAC IV 3.375 GM in DEXTROSE 5% 100ML 100 ML IV SCH (10:00)
[2017-05-31] MEDS: TAMSULOSIN HCL 0.4 MG CAP PO SCH (10:50)
[2017-05-31] MEDS: ACETAMINOPHEN IV 650 MG in EMPTY BAG 0 ML IV PRN (16:29)
--- NOTE | 2017-05-31 17:31 | Progress Note ---
Subjective Date of Service: May 31, 2017. Subjective Pt evaluation today including: conversation w/ patient, physical exam, chart review, lab review Voiding: no voiding problems, no incontinence 56 yo female who is here for her right ureteral calculus. Patient today states that she was nauseous this afternoon with an episode of fever. Patient did have an episode of vomiting, clear yellow fluid. Problem List Medical Problems: (1) Left-sided epistaxis Status: Acute (2) Right ureteral calculus Status: Acute Review of Systems Constitutional: + fever, + chills, No sweats, No weight loss Eyes: No worsening of vision, No eye pain ENT: No hearing loss Respiratory: No cough, No sputum Cardiac: No chest pain, No orthopnea Breast: No breast lump Abdomen: No pain, No nausea Female : No dysuria, No urinary frequency All Other Systems: Reviewed and Negative Medications Current Inpatient Medications Medications (Trade) Dose Ordered Sig/Dipesh Route Start Time Stop Time Status Last Admin Dose Admin Ondansetron HCl (Zofran Inj) 4 mg Q6H PRN IV 05/31/17 04:00 06/30/17 03:59 05/31/17 07:47 4 MG Acetaminophen 650 mg/Empty Bag 65 ml @ 260 mls/hr Q6H PRN IV 05/31/17 04:00 06/30/17 03:59 05/31/17 16:29 260 MLS/HR Promethazine HCl 12.5 mg/Sodium Chloride 50.5 ml @ 204 mls/hr Q6H PRN IV 05/31/17 04:00 06/30/17 03:59 Morphine Sulfate (MoRPHine SULFATE INJ) 2 mg Q2H PRN IV 05/31/17 04:00 06/14/17 03:59 Tamsulosin HCl (Flomax Cap) 0.4 mg QAM PO 05/31/17 09:00 06/30/17 08:59 05/31/17 10:50 0.4 MG Sodium Chloride 1,000 ml @ 150 mls/hr Q6H40M IV 05/31/17 07:45 06/30/17 07:44 05/31/17 14:04 150 MLS/HR Ceftriaxone Sodium 2000 mg/ Dextrose 70 ml @ 140 mls/hr DAILY@1800 IV 05/31/17 18:00 06/10/17 17:59 Objective Vital Signs Date Time Temp Pulse Resp B/P (MAP) Pulse Ox O2 Delivery O2 Flow Rate FiO2 05/31/17 17:11 37.2 114 20 91/54 (66) 94 Room Air 05/31/17 16:10 38.5 118 20 111/61 (78) 95 Room Air 05/31/17 15:12 102 92/58 (69) 05/31/17 15:05 37.0 89 16 84/48 (60) 92 Room Air 80/45 (57) 05/31/17 07:45 Room Air 05/31/17 07:12 37.2 89 17 91 Room Air 05/31/17 05:05 37.0 90 16 123/74 96 Room Air 05/31/17 04:57 86 18 133/77 98 05/31/17 03:01 132/79 98 Room Air 05/31/17 03:00 75 18 05/31/17 02:49 64 05/31/17 02:42 130/73 05/31/17 01:00 70 18 132/96 95 Room Air 05/30/17 22:40 69 05/30/17 22:24 65 18 135/89 98 Room Air 05/30/17 21:23 36.4 72 24 123/80 99 Room Air Physical Exam General Appearance: WD/WN, no apparent distress Respiratory/Chest: chest non-tender, lungs clear, normal breath sounds Cardiovascular: regular rate, rhythm, no edema, no gallop Abdomen: normal bowel sounds, + tenderness (right sided tenderess without rebound tenderness) Laboratory Results Last 24 Hours Test 05/30/17 21:45 05/31/17 00:02 05/31/17 04:13 White Blood Count 14.88 K/uL 9.33 K/uL Red Blood Count 4.89 M/uL 4.50 M/uL Hemoglobin 14.3 g/dL 13.6 g/dL Hematocrit 43.7 % 40.6 % Mean Corpuscular Volume 89.4 fL 90.2 fL Mean Corpuscular Hemoglobin 29.2 pg 30.2 pg Mean Corpuscular Hemoglobin Concent 32.7 g/dl 33.5 g/dl Platelet Count 406 K/uL 288 K/uL Mean Platelet Volume 8.9 fL 8.7 fL Neutrophils (%) (Auto) 74.6 % 96.0 % Lymphocytes (%) (Auto) 17.5 % 3.0 % Monocytes (%) (Auto) 6.6 % 0.3 % Eosinophils (%) (Auto) 0.7 % 0.0 % Basophils (%) (Auto) 0.3 % 0.1 % Neutrophils # (Auto) 11.12 K/uL 8.95 K/uL Lymphocytes # (Auto) 2.60 K/uL 0.28 K/uL Monocytes # (Auto) 0.98 K/uL 0.03 K/uL Eosinophils # (Auto) 0.10 K/uL 0.00 K/uL Basophils # (Auto) 0.04 K/uL 0.01 K/uL RDW Standard Deviation 41.0 fL 41.3 fL RDW Coefficient of Variation 12.6 % 12.5 % Immature Granulocyte % (Auto) 0.3 % 0.6 % Immature Granulocyte # (Auto) 0.04 K/uL 0.06 K/uL Sodium Level 140 mmol/L 139 mmol/L Potassium Level 3.7 mmol/L 3.8 mmol/L Chloride Level 107 mmol/L 106 mmol/L Carbon Dioxide Level 24 mmol/L 23 mmol/L Anion Gap 9.0 mmol/L 10.0 mmol/L Blood Urea Nitrogen 12 mg/dl 13 mg/dl Creatinine 0.79 mg/dl 1.20 mg/dl Est Creatinine Clear Calc Drug Dose 79.8 ml/min 52.6 ml/min Estimated GFR () 96.3 58.1 Estimated GFR (Non- 83.1 50.1 BUN/Creatinine Ratio 15.1 10.9 Random Glucose 106 mg/dl 133 mg/dl Calcium Level 9.1 mg/dl 8.1 mg/dl Total Bilirubin 0.5 mg/dl Direct Bilirubin 0.1 mg/dl Aspartate Amino Transf (AST/SGOT) 18 U/L Alanine Aminotransferase (ALT/SGPT) 28 U/L Alkaline Phosphatase 76 U/L Total Protein 7.7 gm/dl Albumin 3.8 gm/dl Lipase 235 U/L Urine Color YELLOW Urine Appearance CLEAR Urine pH 5.0 Urine Specific [place] 1.022 Urine Protein NEG Urine Glucose (UA) NEG Urine Ketones TRACE Urine Occult Blood 1+ Urine Nitrite POS Urine Bilirubin NEG Urine Urobilinogen NEG Urine Leukocyte Esterase SMALL Urine WBC (Auto) >30 /hpf Urine RBC (Auto) 0-4 /hpf Urine Hyaline Casts (Auto) 1-5 /lpf Urine Epithelial Cells (Auto) 10-20 /lpf Urine Bacteria (Auto) 4+ Assessment and Plan Patient appears to be mildly improving. She did have an epsidoe this afternoon of 101 temp. Cultures were dran in this am. Will also order procalcitonin. Unsure if this fever is related to her UTI or if its secondary to her obstruction. Will continue to keep patient in hospital as she continues to have fever, and is having nausea with vomiting, she will not be able to tolerate oral antibiotics. Continued [facility] stay due to: fever, abnormal vital signs, inadequate po fluid intake, other (unable to tolerate oral antibiotics) Discharge planning: home
[2017-05-31] MEDS ORDERED: CEFTRIAXONE SOD INJ 2000 MG in DEXTROSE 5% 50ML IV SCH (18:00)
[2017-05-31] MEDS ORDERED: SODIUM CHLORIDE 0.9% 500ML 500 ML IV ONE ×2 (18:00→21:35)
[2017-05-31] MEDS ORDERED: PIPERACILL/TAZOBAC IV 3.375 GM in DEXTROSE 5% 100ML 100 ML IV ONE (21:15)
[2017-05-31] MEDS ORDERED: NOREPINEPHRINE BIT INJ 8 MG in DEXTROSE 5% 500ML 500 ML IV PRN (21:34)
[2017-05-31 21:47] LABS: MEAN CELL VOLUME 90.1 fL (80-100); MEAN CORPUSCULAR HEMOGLOBIN 30.8 pg (25-34); MEAN CORPUSCULAR HGB CONC 34.2 g/dl (32-36); PLATELET COUNT 160 K/uL (130-400); RED BLOOD COUNT 3.44 M/uL (4.2-5.4); WHITE BLOOD COUNT 22.93 K/uL (4.8-10.8)
[2017-05-31] MEDS ORDERED: MIDAZOLAM HCL 1 MG/ML 2ML VIAL ONE (21:52)
[2017-05-31 21:54] LABS: ALB/GLOB RATIO 0.8 (0.9-2); BUN/CREATININE RATIO 15.1 (10-20); CALCIUM 7.1 mg/dl (8.5-10.1); CREATININE 1.5 mg/dl (0.60-1.20)
[2017-05-31 21:55] LABS: COMPLETE YES; DOHLE BODIES 1+; LYMPH ABS # 0.21 K/uL (1.2-3.4); LYMPHOCYTE % 0.9 %; METAMYELOCYTE % 6.1 %; NEUTROPHILS % 92.1 %
[2017-05-31 22:06] LABS: POTASSIUM 2.8 mmol/L (3.5-5.1)
--- NOTE | 2017-05-31 22:09 | Progress Note ---
Progress Note Date of Service May 31, 2017. Progress Note Pt admitted last evening and seen by our service today secondary to bilateral renal stones and a distal right ureteral calculus - her condition has deteriorated rapidly this evening - she has had fevers, tachycardia and hypotension - currently with systolic BP in the high 60s to low 70s despite 3.5 L of fluid resuscitation - primary team contacted me to re-evaluate the patient secondary to the notable change in status - she reports her discomfort is nearly midline, but maybe even slightly greater on the left than the right 05/31/17 04:13 Red Blood Count 4.50, Mean Corpuscular Volume 90.2, Mean Corpuscular Hemoglobin 30.2, Mean Corpuscular Hemoglobin Concent 33.5, Mean Platelet Volume 8.7, Neutrophils (%) (Auto) 96.0, Lymphocytes (%) (Auto) 3.0, Monocytes (%) (Auto) 0.3, Eosinophils (%) (Auto) 0.0, Basophils (%) (Auto) 0.1, Neutrophils # (Auto) 8.95, Lymphocytes # (Auto) 0.28, Monocytes # (Auto) 0.03, Eosinophils # (Auto) 0.00, Basophils # (Auto) 0.01 05/31/17 20:43 Test 05/31/17 00:00 05/31/17 00:02 05/31/17 04:13 05/31/17 20:43 Neutrophils % (Manual) 92.1 % Lymphocytes % (Manual) 0.9 % Monocytes % (Manual) 0.9 % Metamyelocytes % 6.1 % Neutrophils # (Manual) 21.12 K/uL (1.4-6.5) Total Absolute Neutrophils 21.12 K/uL (1.4-6.5) Lymphocytes # (Manual) 0.21 K/uL (1.2-3.4) Total Absolute Lymphocytes 0.21 K/uL (1.2-3.4) Monocytes # (Manual) 0.21 K/uL (0.11-0.59) Metamyelocytes # 1.40 K/uL (0-0) Dohle Bodies 1+ Urine Color YELLOW Urine Appearance CLEAR (CLEAR) Urine pH 5.0 (4.5-7.5) Urine Specific [place] 1.022 (1.000-1.030) Urine Protein NEG (NEG) Urine Glucose (UA) NEG (NEG) Urine Ketones TRACE (NEG) Urine Occult Blood 1+ (NEG) Urine Nitrite POS (NEG) Urine Bilirubin NEG (NEG) Urine Urobilinogen NEG (NEG) Urine Leukocyte Esterase SMALL (NEG) Urine WBC (Auto) >30 /hpf (0-5) Urine RBC (Auto) 0-4 /hpf (0-4) Urine Hyaline Casts (Auto) 1-5 /lpf (0-5) Urine Epithelial Cells (Auto) 10-20 /lpf (0-5) Urine Bacteria (Auto) 4+ (NEG) White Blood Count 9.33 K/uL (4.8-10.8) Red Blood Count 4.50 M/uL (4.2-5.4) Hemoglobin 13.6 g/dL (12.0-16.0) Hematocrit 40.6 % (37-47) Mean Corpuscular Volume 90.2 fL (80-100) Mean Corpuscular Hemoglobin 30.2 pg (25-34) Mean Corpuscular Hemoglobin Concent 33.5 g/dl (32-36) Platelet Count 288 K/uL (130-400) Mean Platelet Volume 8.7 fL (7.4-10.4) Neutrophils (%) (Auto) 96.0 % Lymphocytes (%) (Auto) 3.0 % Monocytes (%) (Auto) 0.3 % Eosinophils (%) (Auto) 0.0 % Basophils (%) (Auto) 0.1 % Neutrophils # (Auto) 8.95 K/uL (1.4-6.5) Lymphocytes # (Auto) 0.28 K/uL (1.2-3.4) Monocytes # (Auto) 0.03 K/uL (0.11-0.59) Eosinophils # (Auto) 0.00 K/uL (0-0.5) Basophils # (Auto) 0.01 K/uL (0-0.2) RDW Standard Deviation 41.3 fL (36.4-46.3) RDW Coefficient of Variation 12.5 % (11.5-14.5) Immature Granulocyte % (Auto) 0.6 % Immature Granulocyte # (Auto) 0.06 K/uL (0.00-0.02) Anion Gap 8.0 mmol/L (3-11) Est Creatinine Clear Calc Drug Dose 42.0 ml/min Estimated GFR () 44.4 Estimated GFR (Non- 38.3 BUN/Creatinine Ratio 15.1 (10-20) Calcium Level 7.1 mg/dl (8.5-10.1) Total Bilirubin 1.0 mg/dl (0.2-1) Aspartate Amino Transf (AST/SGOT) 69 U/L (15-37) Alanine Aminotransferase (ALT/SGPT) 52 U/L (12-78) Alkaline Phosphatase 65 U/L (45-117) Total Protein 5.0 gm/dl (6.4-8.2) Albumin 2.2 gm/dl (3.4-5.0) Globulin 2.8 gm/dl (2.5-4.0) Albumin/Globulin Ratio 0.8 (0.9-2) Test 05/31/17 20:48 05/31/17 21:30 Random Cortisol 50.25 mcg/dl Vital Signs Past 12 Hours Date Time Temp Pulse Resp B/P (MAP) Pulse Ox O2 Delivery O2 Flow Rate FiO2 05/31/17 21:31 72/52 (59) 05/31/17 20:35 36.8 107 68/36 (47) 05/31/17 19:34 109 79/48 (58) 05/31/17 19:09 37.5 107 20 83/44 (57) 94 Room Air 05/31/17 18:34 37.2 114 20 94 05/31/17 17:11 37.2 114 20 91/54 (66) 94 Room Air 05/31/17 16:10 38.5 118 20 111/61 (78) 95 Room Air 05/31/17 15:15 Room Air 05/31/17 15:12 102 92/58 (69) 05/31/17 15:05 37.0 89 16 84/48 (60) 92 Room Air 80/45 (57) Ill appearing -but better than vitals would imply tachycardic no resp distress abd soft, right sided tenderness no edema A/P: R UVJ stone, b/l renal stones, sepsis - broad spectrum abx (zosyn now - previously ceftriaxone and levaquin) - CT reviewed: mild right hydro with suspected distal right ureteral calc and bilateral renal stones - discussed options - plan for emergent cysto and right ureteral stent placement - ICU after procedure
--- NOTE | 2017-05-31 22:13 | Critical Care Consultation ---
Critical Care Consultation Date of Consultation: May 31, 2017. Attending Physician: Troy Doyle M.D. Reason for Consultation: Hypotension History of Present Illness Nathalie Lopez is a 56yo female who presented to the ED yesterday for intermittent chills and 10/10 sudden sharp, stabbing and constant right flank pain followed by persistent nausea and vomiting. At that time the pt stated that the pain radiated to her back and inferiorly to her groin. Per pt she has a past history of kidney stones and this feels similar to those episodes. She was admitted to med/surg from the ED. CT demonstrated 3 mm obstructing calculus right ureterovesical junction with mild right hydroureteronephrosis and bilateral nephrocalcinosis slightly progressive as compared to the prior exam in size as well as number. Per my review of her medical documentation; she was transferred from the medical floor around 1829 due to low pressures and received 1L fluid bolus. Around 2029 a code purple was called for the pt in bed 277 due to persistent hypotension. Pt was mentating well and conversing easily throughout code. Her pressures were noted to be between 68-[address] Mohan of the Hospitalist team and nursing report; pt received 3.5L of fluid from 1800 until arrival in ICU at 2310. During the code, I requested for Rogelio Awan RN to page urology due to pts worsening condition and fever earlier in the day. Dr. Mohan spoke with Dr. Gleason who stated he would be right in to take pt to the OR for stent placement. Pt did indeed go to the OR prior to arrival in the ICU. Levophed had been ordered by hospitalist team for pt prior to OR; however, was not given during case. She arrived in the ICU with improved pressures in the 90's - low 100's and moderately sedated. Consenting the pt for central access was delayed due to improved pt status and being under the influence of anesthesia. Of note, the pt was audibly wheezing but denied shortness of breath. Per my own ultrasound, pt appeared to be fluid overloaded with a Type B profile. I spoke with pt about code status and need for BiPap. She stated she would try the Bipap and does wish to be full code. Pt denies feeling feverish or chilled currently. She admits to feeling tired. Her pain is currently a 0/10 and she feels much improved. She denies shortness of breath or trouble breathing. She states she never wheezes, has no history of asthma/COPD, and has never smoked. She denies chest pain, pressure, or awareness of tachyarrhythmia. She denies current N/V/D. Denies recent bladder symptoms such as dysuria, hematuria, or freq/urge. She does admit to UTI approx 1 month ago that was treated outpt with family medicine on [facility]. I could not access her [facility] records. She is not sure what antibiotic she took at that time. Past Medical/Surgical History Medical Problems: Hydronephrosis due to obstruction of ureter Hx of Nephrolithiasis Pyelonephritis Septic Shock UTI Surgical History: Cholecystectomy Right Ureteral Stent Placement Family History Non-Contributory Social History Smoking Status: Never Smoker Smokeless Tobacco Use: No Alcohol Use: none Drug Use: none Marital Status: Housing Status: lives with family Occupation Status: retired ([employer]) Allergies Coded Allergies: No Known Allergies (Unverified , 05/30/17) Home Medications Scheduled Ciprofloxacin (Ciprofloxacin HCl), 500 MG OR BID Naproxen (Naprosyn), 500 MG PO BID Ondasetron Odt (Zofran Odt), 4 MG SL Q6H Tamsulosin Hcl (Flomax), 0.4 MG PO DAILY Tamsulosin Hcl (Flomax), 0.4 MG PO DAILY Current Inpatient Medications Current Inpatient Medications Medications (Trade) Dose Ordered Sig/Dipesh Route Start Time Stop Time Status Last Admin Dose Admin Ondansetron HCl (Zofran Inj) 4 mg Q6H PRN IV 05/31/17 04:00 06/30/17 03:59 05/31/17 07:47 4 MG Acetaminophen 650 mg/Empty Bag 65 ml @ 260 mls/hr Q6H PRN IV 05/31/17 04:00 06/30/17 03:59 05/31/17 16:29 260 MLS/HR Promethazine HCl 12.5 mg/Sodium Chloride 50.5 ml @ 204 mls/hr Q6H PRN IV 05/31/17 04:00 06/30/17 03:59 Morphine Sulfate (MoRPHine SULFATE INJ) 2 mg Q2H PRN IV 05/31/17 04:00 06/14/17 03:59 Tamsulosin HCl (Flomax Cap) 0.4 mg QAM PO 05/31/17 09:00 06/30/17 08:59 05/31/17 10:50 0.4 MG Sodium Chloride 1,000 ml @ 150 mls/hr Q6H40M IV 05/31/17 07:45 06/30/17 07:44 05/31/17 14:04 150 MLS/HR Piperacillin Sod/ Tazobactam Sod 3.375 gm/Dextrose 115 ml @ 28.75 mls/ hr Q8 IV 06/01/17 02:00 06/11/17 01:59 Piperacillin Sod/ Tazobactam Sod (Consult) 1 ea UD PRN N/A 05/31/17 21:00 06/30/17 20:59 Norepinephrine Bitartrate 8 mg/ Dextrose 508 ml @ 0 mls/hr Q0M PRN IV 05/31/17 21:34 06/30/17 21:33 Ondansetron HCl (Zofran Inj) 4 mg ONE PRN IV 05/31/17 22:15 06/01/17 02:00 Atropine Sulfate (Atropine Sulfate 0.1MG/Ml Inj) 0.5 mg Q1M PRN IV 05/31/17 22:15 06/01/17 02:00 Ephedrine Sulfate (EpHEDrine SULFATE INJ) 5 mg Q5M PRN IV 05/31/17 22:15 06/01/17 02:00 Fentanyl Citrate (Fentanyl Inj) 25 mcg Q5M PRN IV 05/31/17 22:15 06/01/17 02:00 Phenylephrine HCl (Chan-Synephrine 500MCG/5ML Syr) 100 mcg Q5M PRN IV 05/31/17 22:15 06/01/17 02:00 Review of Systems 12 systems reviewed and negative other than previously mentioned in the HPI. Physical Exam Date Time Temp Pulse Resp B/P (MAP) Pulse Ox O2 Delivery O2 Flow Rate FiO2 05/31/17 21:31 72/52 (59) 05/31/17 20:35 36.8 107 68/36 (47) 05/31/17 19:34 109 79/48 (58) 05/31/17 19:09 37.5 107 20 83/44 (57) 94 Room Air 05/31/17 18:34 37.2 114 20 94 05/31/17 17:11 37.2 114 20 91/54 (66) 94 Room Air 05/31/17 16:10 38.5 118 20 111/61 (78) 95 Room Air 05/31/17 15:15 Room Air 05/31/17 15:12 102 92/58 (69) 05/31/17 15:05 37.0 89 16 84/48 (60) 92 Room Air 80/45 (57) 05/31/17 07:45 Room Air 05/31/17 07:12 37.2 89 17 91 Room Air 05/31/17 05:05 37.0 90 16 123/74 96 Room Air 05/31/17 04:57 86 18 133/77 98 05/31/17 03:01 132/79 98 Room Air 05/31/17 03:00 75 18 05/31/17 02:49 64 05/31/17 02:42 130/73 05/31/17 01:00 70 18 132/96 95 Room Air 05/30/17 22:40 69 05/30/17 22:24 65 18 135/89 98 Room Air Vital Signs - as noted Laboratory Data - as noted Physical Exam: General - NAD, Sedate Eyes - PERRL, EOMI No icterus, gaze conjugate ENT - Mucosa dry, dentures in place, no lesions or candidiasis Neck - Supple, trachea midline, no masses or lymphadenopathy, no JVD or bruits Lungs - No paradoxical chest wall movement, diminished breath sounds bilaterally , wheezes throughout, No rales or rhonchi Heart - Sinus Tachycardia, No murmur, rubs, clicks, or gallops appreciated Abdomen - Decreased BS, no bruits noted, tympanic to percussion, soft, nontender , nondistended, no organomegaly Extremities - Trace edema, pedal pulses intact Neuro - A&O X 4 Strength extremities equal and appropriate bilaterally Reflexes: Normal and equal CN:PERRL, EOMI, no facial asymmetry, uvula/tongue midline Laboratory Results Last 24 Hours Test 05/31/17 00:00 05/31/17 00:02 05/31/17 04:13 05/31/17 20:43 White Blood Count 22.93 K/uL 9.33 K/uL Red Blood Count 3.44 M/uL 4.50 M/uL Hemoglobin 10.6 g/dL 13.6 g/dL Hematocrit 31.0 % 40.6 % Mean Corpuscular Volume 90.1 fL 90.2 fL Mean Corpuscular Hemoglobin 30.8 pg 30.2 pg Mean Corpuscular Hemoglobin Concent 34.2 g/dl 33.5 g/dl Platelet Count 160 K/uL 288 K/uL Mean Platelet Volume 9.0 fL 8.7 fL RDW Standard Deviation 43.3 fL 41.3 fL RDW Coefficient of Variation 13.3 % 12.5 % Neutrophils % (Manual) 92.1 % Lymphocytes % (Manual) 0.9 % Monocytes % (Manual) 0.9 % Metamyelocytes % 6.1 % Neutrophils # (Manual) 21.12 K/uL Total Absolute Neutrophils 21.12 K/uL Lymphocytes # (Manual) 0.21 K/uL Total Absolute Lymphocytes 0.21 K/uL Monocytes # (Manual) 0.21 K/uL Metamyelocytes # 1.40 K/uL Dohle Bodies 1+ Urine Color YELLOW Urine Appearance CLEAR Urine pH 5.0 Urine Specific [place] 1.022 Urine Protein NEG Urine Glucose (UA) NEG Urine Ketones TRACE Urine Occult Blood 1+ Urine Nitrite POS Urine Bilirubin NEG Urine Urobilinogen NEG Urine Leukocyte Esterase SMALL Urine WBC (Auto) >30 /hpf Urine RBC (Auto) 0-4 /hpf Urine Hyaline Casts (Auto) 1-5 /lpf Urine Epithelial Cells (Auto) 10-20 /lpf Urine Bacteria (Auto) 4+ Neutrophils (%) (Auto) 96.0 % Lymphocytes (%) (Auto) 3.0 % Monocytes (%) (Auto) 0.3 % Eosinophils (%) (Auto) 0.0 % Basophils (%) (Auto) 0.1 % Neutrophils # (Auto) 8.95 K/uL Lymphocytes # (Auto) 0.28 K/uL Monocytes # (Auto) 0.03 K/uL Eosinophils # (Auto) 0.00 K/uL Basophils # (Auto) 0.01 K/uL Immature Granulocyte % (Auto) 0.6 % Immature Granulocyte # (Auto) 0.06 K/uL Sodium Level 139 mmol/L 141 mmol/L Potassium Level 3.8 mmol/L 2.8 mmol/L Chloride Level 106 mmol/L 111 mmol/L Carbon Dioxide Level 23 mmol/L 21 mmol/L Anion Gap 10.0 mmol/L 9.0 mmol/L Blood Urea Nitrogen 13 mg/dl 23 mg/dl Creatinine 1.20 mg/dl 1.50 mg/dl Est Creatinine Clear Calc Drug Dose 52.6 ml/min 42.0 ml/min Estimated GFR () 58.1 44.4 Estimated GFR (Non- 50.1 38.3 BUN/Creatinine Ratio 10.9 15.1 Random Glucose 133 mg/dl 99 mg/dl Calcium Level 8.1 mg/dl 7.1 mg/dl Total Bilirubin 1.0 mg/dl Aspartate Amino Transf (AST/SGOT) 69 U/L Alanine Aminotransferase (ALT/SGPT) 52 U/L Alkaline Phosphatase 65 U/L Total Protein 5.0 gm/dl Albumin 2.2 gm/dl Globulin 2.8 gm/dl Albumin/Globulin Ratio 0.8 Test 05/31/17 20:48 05/31/17 21:30 Procalcitonin 21.13 ng/ml Random Cortisol 50.25 mcg/dl Diagnostic Results ABD/PELVIS WITHOUT FOR STONE CT DOSE: 1059.16 mGy.cm HISTORY: Flank pain Flank pain, eval for stone TECHNIQUE: Multiaxial CT images of the abdomen and pelvis were performed without the use of intravenous and oral contrast according to the standard department stone protocol. A dose lowering technique was utilized adhering to the principles of ALARA. COMPARISON STUDY: 12/28/2007 FINDINGS: Lung bases are clear. Several left renal cysts. Fullness of the renal collecting systems bilaterally. Right-sided renal calcifications slightly increased in prominence from the prior study. Largest calcification within the renal pelvis measures 9 mm. Smaller calcifications lower aspect left kidney are present. Slight fullness of the right ureter as compared to the left. 3 mm calculus right ureterovesical junction. Bladder is midline with no additional calcifications. Bowel pattern is nonobstructive. Scattered colonic diverticuli with no evidence of diverticulitis. IMPRESSION: 1. Bilateral nephrocalcinosis slightly progressive as compared to the prior exam in size as well as number. 2. 3 mm obstructing calculus right ureterovesical junction with mild right hydroureteronephrosis. The above report was generated using voice recognition software. It may contain grammatical, syntax or spelling errors. Electronically signed by: Rubio Pathak M.D. 05/30/2017 10:20 PM Dictated Date/Time: 05/30/2017 10:16 PM RIGHT KUB HISTORY: RT CYSTO WITH STENT PLACEMENT Right FLUOROSCOPY TIME: 5 seconds. FINDINGS: A single fluoroscopic spot image. A right ureteral stent was placed. Only the proximal portion of the stent is identified and appears to be in good position. A right lower pole calculus is again noted. IMPRESSION: Fluoroscopy provided for right ureteral stent placement. Electronically signed by: Marcelino Rivera M.D. 05/31/2017 10:52 PM Dictated Date/Time: 05/31/2017 10:52 PM Assessment & Plan (1) Septic shock (2) Fluid overload (3) Wheezing (4) Tachycardia (5) Hypotension (6) Hypokalemia (7) Hypomagnesemia (8) Pyelonephritis (9) Right ureteral calculus (10) Hydronephrosis due to obstruction of ureter Reason Critically Ill: Patient is an 56-year-old female who is transferred to the ICU for hypotension 2/2 to sepsis from presumed Pyelonephritis 2/2 hydronephrosis due to obstructed right ureter. PLAN: Neuro: * Pain currently 010 * Monitor for changes * Monitor for neurologic changes * Pt hypotensive Resp: * Supplemental oxygen as required * Placed on BiPap overnight 2/2 early signs of fluid overload. * 12/5 40% * Will limit continued fluids CV: * Hypotensive 2/2 to presumed Sepsis * Random Cortisol WNL * ECHO in AM: Fluid overload after 3.5L of NSS Resuscitation * Levophed if needed; Not given to date. * MAP > 60 * Consented by Dr. Lary Mohan for Central Line, Arterial Line, and Chest Tube * Pro-BNP Pending * Monitor on telemetry ID: * Continue Zosyn for Pyelonephritis: * Currently has been intermittently prescribed; 3 doses given * UTI with Gram - Bacilli * Pt previously on Levaquin(1 dose) and Ceftriaxone (1 Dose) * SOFA Score: 4: 33% Mortality * Lactic 2.8; Trend q8h * Procalcitonin: >20 * Leukocytosis: Monitor daily * Monitor Fever Curve; treat with IV Acetaminophen as ordered Fluids/Renal: * MARTÍN: Now Improving; monitor closely. Limit renal toxic medications * Hospitalist team ordered Lasix: Monitor response * Asked for bladder scan for possible need of catheter; scanned for 30mL. * Will hold fluids at this time 2/2 fluid overload * Monitor closely * Continue Tamsulosin * Electrolyte Abnormalities: replete per protocol * Mag and Potassium repleted * No richard, avoid 2/2 to ongoing infection GI/Nutrition: * NPO while hypotensive and on BiPap * Will advance as indicated Heme: * H&H: Hgb decreased consistent with dilutional effect * Monitor for signs of anemia * Trend H&H daily Endocrine: * No prior dx of DM or thyroid dz * Glucose in acceptable range * Accu-Checks per protocol, started insulin infusion for 2 blood sugars greater than 180 CCT: 45 Minutes; This time is exclusive of all separately billable procedures. Thank you for involving us in the care of this patient. Please refer to Dr. Morgan Whiteside's addendum for further recommendations. I have personally evaluated and examined this patient. I agree with assessment and plan of Larry Ulloa PA-C. During my evaluation the patient had significantly improved in her dyspnea. Patient had sepsis secondary to pyelonephritis secondary to obstructing nephrolithiasis necessitating ureteral stent.
[2017-05-31] MEDS ORDERED: CONRAY 30% 150ML BOTTLE ONE (22:14)
[2017-05-31] MEDS ORDERED: EpHEDrine SULFATE INJ 50 MG/ML AMP IV PRN (22:15)
[2017-05-31] MEDS ORDERED: FENTANYL CITRATE INJ 50 MCG/1 ML 2 ML VIAL IV PRN (22:15)
[2017-05-31] MEDS ORDERED: PHENYLEPHRINE 100MCG/ML 5ML SYR IV PRN (22:15)
[2017-05-31] MEDS ORDERED: ATROPINE SULFATE 0.1 MG/ML 5ML SYR IV PRN (22:15)
[2017-05-31] MEDS ORDERED: FENTANYL CITRATE INJ 50 MCG/1 ML 2 ML VIAL ONE (22:24)
--- NOTE | 2017-05-31 22:48 | [facility] Operative Report ---
Operative Report Operative Date May 31, 2017. Pre-Operative Diagnosis Sepsis, right hydronephrosis Post-Operative Diagnosis Sepsis, right hydronephrosis Procedure(s) Performed Cystoscopy, right stent placement ([id number]) Surgeon Dr. Gleason Main Entree [employer] And Cashier Surgeon(s) none Estimated Blood Loss 0ml Findings R UVJ stone; purulent urine Specimens None per surgeon Drains [id number] Anesthesia Gen Complication(s) None Disposition Surgical ICU Indications Sepsis -- hypotension; fevers; tachycardia; obstructing right ureteral stone Description of Procedure The patient was identified in the preoperative holding area and appropriate informed consent reviewed and completed and the patient was transported to the operating suite. She has previously been on antibiotics during this hospitalization but she received an additional dose of Zosyn upon arrival in the operative suite. Sedation was achieved, and she was placed in dorsal lithotomy position and sterilely prepped and draped in standard fashion. I begin the case by passing a 22 Georgian cystoscope with 30 lens. Brief inspection of the bladder was carried out. No tumors were visualized. General orifices weren't orthotopic position. A small amount of stone debris was visible at the right UO. Following my inspection I cannulated the right ureteral orifice with a sensor wire advanced the kidney under fluoroscopic guidance. As the wire entered the ureter, and immediately released a copious amount of dark, purulent-appearing urine. A stone was visible within the UVJ but did not pass. After allowing some of the ureteral fluid to drain, I placed a 6 Georgian by 26 cm double-J ureteral stent over the wire. There is a good curl in the upper pole of the kidney as well as the bladder. There is clear drainage through the stent. Subsequently decompressed the bladder, and concluded the case. She was reversed from anesthesia and taken to the ICU. I attest to the content of the Intraoperative Record and any orders documented therein. Any exceptions are noted below.
--- NOTE | 2017-05-31 22:54 | DIAGNOSTIC IMAGING REPORT ---
RIGHT KUB HISTORY: RT CYSTO WITH STENT PLACEMENT Right FLUOROSCOPY TIME: 5 seconds. FINDINGS: A single fluoroscopic spot image. A right ureteral stent was placed. Only the proximal portion of the stent is identified and appears to be in good position. A right lower pole calculus is again noted. IMPRESSION: Fluoroscopy provided for right ureteral stent placement. Electronically signed by: Marcelino Rivera M.D. 05/31/2017 10:52 PM Dictated Date/Time: 05/31/2017 10:52 PM
--- NOTE | 2017-05-31 23:20 | Anesthesiology Progress Note ---
Anesthesia Post Op Note Date & Time May 31, 2017 at 23:18 Vital Signs Pain Intensity: 1 Vital Signs Past 12 Hours Date Time Temp Pulse Resp B/P (MAP) Pulse Ox O2 Delivery O2 Flow Rate FiO2 05/31/17 22:55 36.4 109 26 90/52 98 Nasal Cannula 4 05/31/17 22:45 115 24 87/52 98 Oxymask 10 05/31/17 22:35 37.4 115 24 88/50 95 Oxymask 10 05/31/17 21:31 72/52 (59) 05/31/17 20:35 36.8 107 68/36 (47) 05/31/17 20:27 36.8 105 22 68/ (22) 05/31/17 19:34 109 79/48 (58) 05/31/17 19:09 37.5 107 20 83/44 (57) 94 Room Air 05/31/17 18:34 37.2 114 20 94 05/31/17 17:11 37.2 114 20 91/54 (66) 94 Room Air 05/31/17 16:10 38.5 118 20 111/61 (78) 95 Room Air 05/31/17 15:15 Room Air 05/31/17 15:12 102 92/58 (69) 05/31/17 15:05 37.0 89 16 84/48 (60) 92 Room Air 80/45 (57) Notes Mental Status: alert / awake / arousable Pt Amnestic to Procedure: Yes Nausea / Vomiting: adequately controlled Pain: adequately controlled Airway Patency, RR, SpO2: stable & adequate, see Notes BP & HR: stable & adequate Hydration State: stable & adequate, see Notes Anesthetic Complications: no major complications apparent Soon after procedure was noted to have some wheezing - suspect some fluid overload due to volume resuscitation - ICU PA aware. Despite this she was still keeping her O2 sats in the 93-94% range on NC O2. SBP in the high 80's and stable.
[2017-06-01] VITALS (25 sets, daily range): BP systolic 80–126; BP diastolic 43–85; PULSE 80–99; TEMP 36.4–37; O2SAT 93–99
[2017-06-01 00:06] LABS: BUN/CREATININE RATIO 17.2 (10-20); CREATININE 1.3 mg/dl (0.60-1.20); MAGNESIUM 1.2 mg/dl (1.8-2.4); PHOSPHORUS 3.3 mg/dl (2.5-4.9); POTASSIUM 3.3 mmol/L (3.5-5.1)
[2017-06-01] MEDS: POTASSIUM CHLR 10 MEQ / WTR 10 MEQ in PREMIXED WATER 100 ML IV SCH ×2 (00:43→01:46)
[2017-06-01] MEDS ORDERED: FUROSEMIDE INJ 20 MG in SYRINGE 0 ML IV STA (01:30)
[2017-06-01] MEDS: MAGNESIUM SULFATE 1GM / D5W 1 GM in PREMIXED IN D5W 100 ML IV SCH ×2 (01:47→03:01)
[2017-06-01] MEDS ORDERED: PIPERACILL/TAZOBAC IV 3.375 GM in DEXTROSE 5% 100ML 100 ML IV SCH (02:00)
[2017-06-01] MEDS: SODIUM CHLORIDE 0.9% 1000ML 1,000 ML IV SCH (03:45)
[2017-06-01 05:46] LABS: HEMATOCRIT 32.6 % (37-47); MEAN CELL VOLUME 88.8 fL (80-100); MEAN CORPUSCULAR HGB CONC 33.7 g/dl (32-36); MEAN PLATELET VOLUME 8.8 fL (7.4-10.4); PLATELET COUNT 163 K/uL (130-400); RED BLOOD COUNT 3.67 M/uL (4.2-5.4); WHITE BLOOD COUNT 32.54 K/uL (4.8-10.8)
[2017-06-01 05:50] LABS: BASO % 0.1 %; BASO ABS # 0.03 K/uL (0-0.2); COMPLETE YES; DOHLE BODIES 2+; ECHINOCYTES 1+; EOS % 0.1 %; IG% 6.4 %; LYMPH % 4.8 %; LYMPH ABS # 1.56 K/uL (1.2-3.4); MONO % 3.3 %; NEUT % 85.3 %
[2017-06-01] MEDS: ACETAMINOPHEN IV 650 MG in EMPTY BAG 0 ML IV PRN (05:52)
[2017-06-01 05:56] LABS: BUN/CREATININE RATIO 17.6 (10-20); CALCIUM 6.7 mg/dl (8.5-10.1); CREATININE 1.3 mg/dl (0.60-1.20); MAGNESIUM 2.2 mg/dl (1.8-2.4); PHOSPHORUS 3.9 mg/dl (2.5-4.9); POTASSIUM 3.9 mmol/L (3.5-5.1)
--- NOTE | 2017-06-01 06:57 | DIAGNOSTIC IMAGING REPORT ---
CHEST ONE VIEW PORTABLE CLINICAL HISTORY: Fluid Overload dyspnea COMPARISON STUDY: 06/01/2017 12:13 AM FINDINGS: Mild stable cardiomegaly. Persistent prominence of pulmonary vasculature. Mild parenchymal infiltrate right and to lesser extent medial left base. IMPRESSION: Mild congestive failure. Small bibasilar parenchymal infiltrates The above report was generated using voice recognition software. It may contain grammatical, syntax or spelling errors. Electronically signed by: Rubio Pathak M.D. 06/01/2017 6:56 AM Dictated Date/Time: 06/01/2017 6:55 AM
--- NOTE | 2017-06-01 07:05 | DIAGNOSTIC IMAGING REPORT ---
CHEST ONE VIEW PORTABLE CLINICAL HISTORY: 56 years-old Female presenting with Fluid Overload. TECHNIQUE: Portable upright AP view of the chest was obtained. COMPARISON: None. FINDINGS: Mildly low lung volumes with hypoventilatory changes. Resulting prominence of the cardiac mediastinal silhouette. Prominence of pulmonary vasculature and vague bibasilar opacities. No large effusion or pneumothorax. Osseous structures normal. Cholecystectomy clips noted. IMPRESSION: 1. Low lung volumes with hypoventilatory changes. 2. Cardiac prominence with prominent pulmonary vasculature and hazy bibasilar opacities. This could represent fluid overload with edema, though infection not excluded. Electronically signed by: Guido Silva M.D. 06/01/2017 7:04 AM Dictated Date/Time: 06/01/2017 7:01 AM
--- NOTE | 2017-06-01 07:17 | Progress Note ---
Progress Note Date of Service Jun 01, 2017. Progress Note Summary of events overnight. At start of shift while reviewing charts of admits from previous night noticed patient was hypotensive with temperature earlier in the day. Patient had just been transferred to telemetry and received 500ml of NSS but remained hypotensive BP 79/48. 1L NSS bolus ordered over the phone and asked to call back with repeat pressure after this was given. Paged back and BP 68/22 HR 105. Alexandria vazquez was called at this time. Patient was fully responsive but having chills as when I admitted her the previous night. Airway was patent. Sats 93% on RA -> Oxymask with 6L increased sats to 97%, RR 16. CTA. cap refill 3-4s peripherally, HR and BP was confirmed as before, EKG showed sinus tachycardia without ischemic changes. Second IV line was established and 2x1L NSS bolus started. The patient was discussed with Dr Gleason who arranged for emergent stent placement. BP reportedly increased to 109 after the 2x1L bolus given however this was taken with the automatic cuff and suspect over estimated as when retaken manually BP remained @ 74/40. Levophed was ordered at this time and patient was discussed with Silvana Ulloa PA-C for transfer to ICU. The Levophed was never started as it only just arrived as she was going down for surgery. Right sided ureteral stent performed by Dr Gleason with pus noted. Patient was transferred to ICU and care was managed in collaboration with Silvana Ulloa ICU IVIS. CXR - showed pulmonary edema with b/l pleural effusions - lasix 20mg IV ordered.
--- NOTE | 2017-06-01 08:04 | Progress Note ---
Progress Note Date of Service Jun 01, 2017. Progress Note S: feeling much better this AM - still with SOB - no CP - no abdominal pain - some dysuria - but mild O: Vital Signs Past 12 Hours Date Time Temp Pulse Resp B/P (MAP) Pulse Ox O2 Delivery O2 Flow Rate FiO2 06/01/17 06:00 87 23 108/76 (87) 96 Nasal Cannula 2.0 06/01/17 04:00 36.4 85 24 103/70 (81) 98 BiPAP 40 06/01/17 04:00 99 BiPAP 40 06/01/17 03:30 90 25 99/69 (79) BiPAP 40 06/01/17 03:00 91 28 97/64 (75) 97 BiPAP 40 06/01/17 02:30 91 25 88/64 (72) 99 BiPAP 40 06/01/17 02:00 92 24 80/43 (55) 99 BiPAP 40 06/01/17 01:30 94 27 88/61 (70) 98 BiPAP 06/01/17 01:21 97 BiPAP 40 06/01/17 01:15 91 25 87/60 (69) 98 BiPAP 06/01/17 01:01 99 31 92/58 (69) 95 BiPAP 06/01/17 00:46 93 28 84/56 (65) 97 BiPAP 06/01/17 00:30 98 30 96/55 (69) 98 BiPAP 06/01/17 00:15 98 26 86/64 (71) 97 BiPAP 06/01/17 00:00 99 28 89/58 (68) 98 BiPAP 05/31/17 23:45 103 27 88/62 (71) 98 BiPAP 05/31/17 23:41 104 97 40 05/31/17 23:41 104 28 97 BiPAP 40 05/31/17 23:40 32 84/57 (66) 95 Nasal Cannula 4.0 05/31/17 23:40 32 95 05/31/17 23:20 31 94/49 (64) 93 Nasal Cannula 4.0 05/31/17 23:16 28 80/57 (65) 96 Nasal Cannula 4.0 05/31/17 23:10 36.8 26 86/50 (62) 97 Nasal Cannula 4.0 05/31/17 22:55 36.4 109 26 90/52 98 Nasal Cannula 4 05/31/17 22:45 115 24 87/52 98 Oxymask 10 05/31/17 22:35 37.4 115 24 88/50 95 Oxymask 10 05/31/17 21:31 72/52 (59) 05/31/17 20:35 36.8 107 68/36 (47) 05/31/17 20:27 36.8 105 22 68/ (22) moderately dyspneic AAOx3 RRR abd soft, non-tender A/P: Sepsis secondary to obstructing right ureteral stone - e.coli - sensitive to all - ok to taper antibiotics - BP improved, HR improved - ultimately home on 14d total abx - outpt f/u for definitive stone treatment
[2017-06-01] MEDS: CIPROFLOXACIN / D5W 400 MG in PREMIXED IN D5W 200 ML IV SCH ×2 (09:11→21:20)
--- NOTE | 2017-06-01 09:28 | Progress Note ---
Subjective Date of Service: Jun 01, 2017. Subjective Pt evaluation today including: conversation w/ patient, conversation w/ family , physical exam, chart review, lab review, review of studies 56 yo female who is in the ICU for right hydronephrosis and complication from right ureteral stone S/P stent placement and stone removal (Day0). Patient reports feeling much better today, no longer nauseous, no longer having back pain, no fever or chills. Patient reports feeling short of breath in bed, and reports having pleuritic chest pain on deep inspiration. Patient also reports that she has not had a BM since her admission. Problem List Medical Problems: (1) Left-sided epistaxis Status: Acute (2) Right ureteral calculus Status: Acute Review of Systems Constitutional: No fever, No chills, No sweats, No weight loss, No weakness Eyes: No worsening of vision, No eye pain ENT: No hearing loss, No unusual epistaxis Respiratory: + shortness of breath, No cough, No sputum, No wheezing, No dyspnea on exertion Cardiac: + chest pain, No orthopnea, No PND, No edema, No claudication Breast: No breast lump, No change in shape Abdomen: No pain, No nausea Musculoskeletal: No joint pain Female : No dysuria, No urinary frequency Psychiatric: No depression symptoms Endo: + fatigue, No excessive thirst, No excessive urination Skin: No rash, No itch, No color change Medications Current Inpatient Medications Medications (Trade) Dose Ordered Sig/Dipesh Route Start Time Stop Time Status Last Admin Dose Admin Ondansetron HCl (Zofran Inj) 4 mg Q6H PRN IV 05/31/17 04:00 06/30/17 03:59 05/31/17 07:47 4 MG Promethazine HCl 12.5 mg/Sodium Chloride 50.5 ml @ 204 mls/hr Q6H PRN IV 05/31/17 04:00 06/30/17 03:59 Tamsulosin HCl (Flomax Cap) 0.4 mg QAM PO 05/31/17 09:00 06/30/17 08:59 05/31/17 10:50 0.4 MG Ciprofloxacin/ Dextrose 400 mg/ Prmx 200 ml @ 100 mls/hr Q12H IV 06/01/17 09:00 06/01/17 23:59 06/01/17 09:11 100 MLS/HR Acetaminophen (Tylenol Tab) 650 mg Q6 PRN PO 06/01/17 08:45 07/01/17 08:44 Ciprofloxacin (Cipro Tab) 500 mg BID PO 06/02/17 09:00 06/14/17 23:59 Enoxaparin Sodium (Lovenox Inj) 40 mg DAILY SQ 06/01/17 09:30 10 09:29 Oxycodone HCl (Roxicodone Immediate Rel Tab) 5 mg Q4H PRN PO 06/01/17 09:15 06/15/17 09:14 Objective Vital Signs Date Time Temp Pulse Resp B/P (MAP) Pulse Ox O2 Delivery O2 Flow Rate FiO2 06/01/17 06:00 87 23 108/76 (87) 96 Nasal Cannula 2.0 06/01/17 04:00 36.4 85 24 103/70 (81) 98 BiPAP 40 06/01/17 04:00 99 BiPAP 40 06/01/17 03:30 90 25 99/69 (79) BiPAP 40 06/01/17 03:00 91 28 97/64 (75) 97 BiPAP 40 06/01/17 02:30 91 25 88/64 (72) 99 BiPAP 40 06/01/17 02:00 92 24 80/43 (55) 99 BiPAP 40 06/01/17 01:30 94 27 88/61 (70) 98 BiPAP 06/01/17 01:21 97 BiPAP 40 06/01/17 01:15 91 25 87/60 (69) 98 BiPAP 06/01/17 01:01 99 31 92/58 (69) 95 BiPAP 06/01/17 00:46 93 28 84/56 (65) 97 BiPAP 06/01/17 00:30 98 30 96/55 (69) 98 BiPAP 06/01/17 00:15 98 26 86/64 (71) 97 BiPAP 06/01/17 00:00 99 28 89/58 (68) 98 BiPAP 05/31/17 23:45 103 27 88/62 (71) 98 BiPAP 05/31/17 23:41 104 97 40 05/31/17 23:41 104 28 97 BiPAP 40 05/31/17 23:40 32 84/57 (66) 95 Nasal Cannula 4.0 05/31/17 23:40 32 95 05/31/17 23:20 31 94/49 (64) 93 Nasal Cannula 4.0 05/31/17 23:16 28 80/57 (65) 96 Nasal Cannula 4.0 05/31/17 23:10 36.8 26 86/50 (62) 97 Nasal Cannula 4.0 05/31/17 22:55 36.4 109 26 90/52 98 Nasal Cannula 4 05/31/17 22:45 115 24 87/52 98 Oxymask 10 05/31/17 22:35 37.4 115 24 88/50 95 Oxymask 10 05/31/17 21:31 72/52 (59) 05/31/17 20:35 36.8 107 68/36 (47) 05/31/17 20:27 36.8 105 22 68/ (22) 05/31/17 19:34 109 79/48 (58) 05/31/17 19:09 37.5 107 20 83/44 (57) 94 Room Air 05/31/17 18:34 37.2 114 20 94 05/31/17 17:11 37.2 114 20 91/54 (66) 94 Room Air 05/31/17 16:10 38.5 118 20 111/61 (78) 95 Room Air 05/31/17 15:15 Room Air 05/31/17 15:12 102 92/58 (69) 05/31/17 15:05 37.0 89 16 84/48 (60) 92 Room Air 80/45 (57) Physical Exam General Appearance: WD/WN, no apparent distress Neck: supple, no adenopathy Respiratory/Chest: chest non-tender, lungs clear, normal breath sounds, no respiratory distress, + accessory muscle use Cardiovascular: regular rate, rhythm, no edema, no gallop, no JVD, no murmur Abdomen: normal bowel sounds, non tender, soft, no pulsatile mass Extremities: normal range of motion, non-tender Neurologic/Psychiatric: alert, normal mood/affect Skin: normal color, warm/dry, no rash Laboratory Results Last 24 Hours Test 05/31/17 20:43 05/31/17 20:48 05/31/17 20:51 05/31/17 21:30 Sodium Level 141 mmol/L Potassium Level 2.8 mmol/L Chloride Level 111 mmol/L Carbon Dioxide Level 21 mmol/L Anion Gap 9.0 mmol/L Blood Urea Nitrogen 23 mg/dl Creatinine 1.50 mg/dl Est Creatinine Clear Calc Drug Dose 42.0 ml/min Estimated GFR () 44.4 Estimated GFR (Non- 38.3 BUN/Creatinine Ratio 15.1 Random Glucose 99 mg/dl Calcium Level 7.1 mg/dl Total Bilirubin 1.0 mg/dl Aspartate Amino Transf (AST/SGOT) 69 U/L Alanine Aminotransferase (ALT/SGPT) 52 U/L Alkaline Phosphatase 65 U/L Total Protein 5.0 gm/dl Albumin 2.2 gm/dl Globulin 2.8 gm/dl Albumin/Globulin Ratio 0.8 Procalcitonin 21.13 ng/ml Random Cortisol 50.25 mcg/dl White Blood Count 22.93 K/uL Red Blood Count 3.44 M/uL Hemoglobin 10.6 g/dL Hematocrit 31.0 % Mean Corpuscular Volume 90.1 fL Mean Corpuscular Hemoglobin 30.8 pg Mean Corpuscular Hemoglobin Concent 34.2 g/dl Platelet Count 160 K/uL Mean Platelet Volume 9.0 fL RDW Standard Deviation 43.3 fL RDW Coefficient of Variation 13.3 % Neutrophils % (Manual) 92.1 % Lymphocytes % (Manual) 0.9 % Monocytes % (Manual) 0.9 % Metamyelocytes % 6.1 % Neutrophils # (Manual) 21.12 K/uL Total Absolute Neutrophils 21.12 K/uL Lymphocytes # (Manual) 0.21 K/uL Total Absolute Lymphocytes 0.21 K/uL Monocytes # (Manual) 0.21 K/uL Metamyelocytes # 1.40 K/uL Dohle Bodies 1+ Lactic Acid Level 2.8 mmol/L Test 05/31/17 23:35 06/01/17 05:18 06/01/17 08:52 Sodium Level 141 mmol/L 141 mmol/L Potassium Level 3.3 mmol/L 3.9 mmol/L Chloride Level 113 mmol/L 113 mmol/L Carbon Dioxide Level 19 mmol/L 19 mmol/L Anion Gap 9.0 mmol/L 9.0 mmol/L Blood Urea Nitrogen 22 mg/dl 23 mg/dl Creatinine 1.30 mg/dl 1.30 mg/dl Est Creatinine Clear Calc Drug Dose 48.5 ml/min 48.5 ml/min Estimated GFR () 52.7 52.7 Estimated GFR (Non- 45.5 45.5 BUN/Creatinine Ratio 17.2 17.6 Random Glucose 112 mg/dl 98 mg/dl Calcium Level 7.0 mg/dl 6.7 mg/dl Phosphorus Level 3.3 mg/dl 3.9 mg/dl Magnesium Level 1.2 mg/dl 2.2 mg/dl Total Bilirubin 1.1 mg/dl 0.7 mg/dl Direct Bilirubin 0.8 mg/dl 0.4 mg/dl Aspartate Amino Transf (AST/SGOT) 72 U/L 61 U/L Alanine Aminotransferase (ALT/SGPT) 57 U/L 59 U/L Alkaline Phosphatase 56 U/L 54 U/L Pro-B-Type Natriuretic Peptide 9426 pg/ml Total Protein 5.4 gm/dl 5.4 gm/dl Albumin 2.3 gm/dl 2.4 gm/dl White Blood Count 32.54 K/uL Red Blood Count 3.67 M/uL Hemoglobin 11.0 g/dL Hematocrit 32.6 % Mean Corpuscular Volume 88.8 fL Mean Corpuscular Hemoglobin 30.0 pg Mean Corpuscular Hemoglobin Concent 33.7 g/dl Platelet Count 163 K/uL Mean Platelet Volume 8.8 fL Neutrophils (%) (Auto) 85.3 % Lymphocytes (%) (Auto) 4.8 % Monocytes (%) (Auto) 3.3 % Eosinophils (%) (Auto) 0.1 % Basophils (%) (Auto) 0.1 % Neutrophils # (Auto) 27.75 K/uL Lymphocytes # (Auto) 1.56 K/uL Monocytes # (Auto) 1.07 K/uL Eosinophils # (Auto) 0.04 K/uL Basophils # (Auto) 0.03 K/uL RDW Standard Deviation 44.5 fL RDW Coefficient of Variation 13.6 % Immature Granulocyte % (Auto) 6.4 % Immature Granulocyte # (Auto) 2.09 K/uL Dohle Bodies 2+ Echinocytes 1+ Lactic Acid Level 2.0 mmol/L Creatine Kinase MB Ratio Assessment and Plan Right ureteral stone S/P removal Patient had procedure last night by Urology as she was decompensating with hypotension and elevated heart rate, fever. After procedure, bloody and purulent fluid was removed via urinary catherther. Patient this morning has improved, does not require vasopressors or IVF fluids. NO longer has symptomatology that she had yesterday. Will likely transfer patient outof the ICU later today. Will change antibiotics to ciprofloxacin. Discussed risks of tendinitis with patient. Patient denies any musculoskeletal issues. once discharged, patient will require 14 days of antibiotics. will f/u with urology as an outpatient. SOB likely related with volume that was used to replenish patient yesterday as she was decompensating. Patient did receive a dose of lasix this AM. Awaiting echocardiogram which was ordered by ICU team. There is concern with stress cardiomyopathy. elevated troponin likely stress induced cardiomyopathy. echo pending Update (5:00pm) Troponin is creeping up to 1.3; echo showed apical akinesis. consulted cardiology. d/w intensitivist, likely stress induced cardiomyopathy. Patient is doing well, resting comfortably. vitals stable. patient downgraded to telemetry unit. Continued [facility] stay due to: ambulation difficulties, other (Sob, CONSTIPATION, awaiting to see if patient tolerates oral antibiotics) Discharge planning: home
[2017-06-01] MEDS: TAMSULOSIN HCL 0.4 MG CAP PO SCH (09:57)
[2017-06-01] MEDS: ENOXAPARIN 40 MG/0.4 ML SYR SQ SCH (09:57)
[2017-06-01] MEDS: ACETAMINOPHEN 325 MG TAB PO PRN ×2 (09:58→19:34)
--- NOTE | 2017-06-01 11:30 | Critical Care Progress Note ---
Critical Care Progress Note Date of Service Jun 01, 2017. ICU Day ICU Day Number: [address] Whiteside Subjective Patient currently resting comfortably in bed this morning with no acute complaints. Denies any pain this morning and denies any shortness of breath after being on Oxygen. Objective GENERAL: Awake, alert, well-appearing, in no distress HENT: Normocephalic, atraumatic. Oropharynx unremarkable. EYES: Normal conjunctiva. Sclera non-icteric. NECK: Supple. No nuchal rigidity. RESPIRATORY: Decreased breath sounds over the left lung base with bilateral crackles at the bases. CARDIAC: Regular rate, normal rhythm. Extremities warm and well perfused. Pulses equal. ABDOMEN: Soft, non-distended. No tenderness to palpation. RECTAL: Deferred. MUSCULOSKELETAL: Chest examination reveals no tenderness. LOWER EXTREMITIES: Calves are equal size bilaterally and non-tender. No edema. No discoloration. NEURO: Normal sensorium. No sensory or motor deficits noted. SKIN: No rash or jaundice noted. Current SOFA Score SOFA Score Response (Comments) Value Platelets (x10) < 100 2 Bilirubin (mg/dL) < 1.2 0 [place] Coma Score 15 0 Level of Hypotension No Hypotension 0 Creatinine (mg/dL) 1.2 - 1.9 1 Total 3 Assessment & Plan The patient is a 56 year old female with pyelonephritis 2/2 hydronephrosis due to obstructed right ureter that became febrile and hypotensive yesterday and was taken for urgent stent placement overnight by Dr. Gleason. The patient has done well since being transferred to the ICU not requiring Precedex but did require short term BiPAP but is currently on 2L of oxygen. The patient did receive 2L for s/s of fluid overload, and we will ambulate the patient today to continue improving her respiratory function. Neuro: - CAM-ICU negative - Pain currently well controlled - Tylenol PO 650mg q6h Resp: - Supplemental oxygen as required --> Currently on 2L of oxygen - Short course of BiPAP overnight 2/2 early signs of fluid overload - Received 20mg IV Lasix - D/C fluids at this time - CXR this morning: Mild congestive failure with small bibasilar parenchymal infiltrates CV: - Hypotensive 2/2 to presumed Sepsis - Received 3.5L fluid resuscitation prior to stent placement - Has not required any pressors in the ICU - MAP > 60 - ProBNP 7294 - Troponin 1.05 --> Trend q6h - CXR: Pulm Edema with b/l effusions - Received 20mg IV Lasix overnight - Echo ordered ID: - Sepsis 2/2 Pyelonephritis - Afebrile - Leukocytosis increased: 22.93--> 32.54 - Urine cultures show pansensitive E Coli - Ciprofloxacin - 500mg PO BID - Lactic Acid 2.8 --> 2.0 - Procalcitonin 21.13 Fluids/Renal: - MARTÍN: Now Improving; monitor closely. Limit renal toxic medications - 20mg IV Lasix yesterday - Monitor I/O - D/C fluids due to fluid overload - Flomax 0.4mg qAM - Phos and Mag wnl - No richard in place GI/Nutrition: - Full Liquid Diet - Advance as tolerated Heme: - Lovenox 40mg sq daily - Hgb 11.0 - improved from yesterday Endocrine: - No history of DM - Accu-Checks per protocol, started insulin infusion for 2 blood sugars greater than 180 Resident Physician Supervision Note: Dr. Martínez was resident physician during care of patient. I separately evaluated patient and did history and exam. I discussed the case with the resident and generally agree with the findings and plan. Patient continued to improve throughout the day, ambulated around the unit several times and was stable for downgraded out of the ICU. Documented By: Morgan Whiteside DO Consults & Procedures Consultants: Dr. Gleason Procedures: Ureteral Stent Data Medications: Current Inpatient Medications Medications (Trade) Dose Ordered Sig/Dipesh Route Start Time Stop Time Status Last Admin Dose Admin Ondansetron HCl (Zofran Inj) 4 mg Q6H PRN IV 05/31/17 04:00 06/30/17 03:59 05/31/17 07:47 4 MG Promethazine HCl 12.5 mg/Sodium Chloride 50.5 ml @ 204 mls/hr Q6H PRN IV 05/31/17 04:00 06/30/17 03:59 Tamsulosin HCl (Flomax Cap) 0.4 mg QAM PO 05/31/17 09:00 06/30/17 08:59 06/01/17 09:57 0.4 MG Ciprofloxacin/ Dextrose 400 mg/ Prmx 200 ml @ 100 mls/hr Q12H IV 06/01/17 09:00 06/01/17 23:59 06/01/17 09:11 100 MLS/HR Acetaminophen (Tylenol Tab) 650 mg Q6 PRN PO 06/01/17 08:45 07/01/17 08:44 06/01/17 09:58 650 MG Ciprofloxacin (Cipro Tab) 500 mg BID PO 06/02/17 09:00 06/14/17 23:59 Enoxaparin Sodium (Lovenox Inj) 40 mg DAILY SQ 06/01/17 09:30 07/01/17 09:29 06/01/17 09:57 40 MG Oxycodone HCl (Roxicodone Immediate Rel Tab) 5 mg Q4H PRN PO 06/01/17 09:15 06/15/17 09:14 Furosemide 40 mg/ Syringe 4 ml @ 4 mls/min NOW ONCE IV 06/01/17 10:30 06/01/17 10:31 UNV Vital Signs: Date Time Temp Pulse Resp B/P (MAP) Pulse Ox O2 Delivery O2 Flow Rate FiO2 06/01/17 10:01 88 27 114/72 (86) 98 Nasal Cannula 2.0 06/01/17 09:00 91 31 108/84 (92) 96 Nasal Cannula 2.0 06/01/17 08:00 Nasal Cannula 2.0 06/01/17 08:00 36.7 84 34 113/79 (90) 97 Nasal Cannula 2.0 06/01/17 08:00 Nasal Cannula 06/01/17 06:00 87 23 108/76 (87) 96 Nasal Cannula 2.0 06/01/17 04:00 36.4 85 24 103/70 (81) 98 BiPAP 40 06/01/17 04:00 99 BiPAP 40 06/01/17 03:30 90 25 99/69 (79) BiPAP 40 06/01/17 03:00 91 28 97/64 (75) 97 BiPAP 40 06/01/17 02:30 91 25 88/64 (72) 99 BiPAP 40 06/01/17 02:00 92 24 80/43 (55) 99 BiPAP 40 06/01/17 01:30 94 27 88/61 (70) 98 BiPAP 06/01/17 01:21 97 BiPAP 40 06/01/17 01:15 91 25 87/60 (69) 98 BiPAP 06/01/17 01:01 99 31 92/58 (69) 95 BiPAP 06/01/17 00:46 93 28 84/56 (65) 97 BiPAP 06/01/17 00:30 98 30 96/55 (69) 98 BiPAP 06/01/17 00:15 98 26 86/64 (71) 97 BiPAP 06/01/17 00:00 99 28 89/58 (68) 98 BiPAP 05/31/17 23:45 103 27 88/62 (71) 98 BiPAP 05/31/17 23:41 104 97 40 05/31/17 23:41 104 28 97 BiPAP 40 05/31/17 23:40 32 84/57 (66) 95 Nasal Cannula 4.0 05/31/17 23:40 32 95 05/31/17 23:20 31 94/49 (64) 93 Nasal Cannula 4.0 05/31/17 23:16 28 80/57 (65) 96 Nasal Cannula 4.0 05/31/17 23:10 36.8 26 86/50 (62) 97 Nasal Cannula 4.0 05/31/17 22:55 36.4 109 26 90/52 98 Nasal Cannula 4 05/31/17 22:45 115 24 87/52 98 Oxymask 10 05/31/17 22:35 37.4 115 24 88/50 95 Oxymask 10 05/31/17 21:31 72/52 (59) 05/31/17 20:35 36.8 107 68/36 (47) 05/31/17 20:27 36.8 105 22 68/ (22) 05/31/17 19:34 109 79/48 (58) 05/31/17 19:09 37.5 107 20 83/44 (57) 94 Room Air 05/31/17 18:34 37.2 114 20 94 05/31/17 17:11 37.2 114 20 91/54 (66) 94 Room Air 05/31/17 16:10 38.5 118 20 111/61 (78) 95 Room Air 05/31/17 15:15 Room Air 05/31/17 15:12 102 92/58 (69) 05/31/17 15:05 37.0 89 16 84/48 (60) 92 Room Air 80/45 (57) Laboratory Results: Last 24 Hours Test 9/11/17 20:43 05/31/17 20:48 05/31/17 20:51 05/31/17 21:30 Sodium Level 141 mmol/L Potassium Level 2.8 mmol/L Chloride Level 111 mmol/L Carbon Dioxide Level 21 mmol/L Anion Gap 9.0 mmol/L Blood Urea Nitrogen 23 mg/dl Creatinine 1.50 mg/dl Est Creatinine Clear Calc Drug Dose 42.0 ml/min Estimated GFR () 44.4 Estimated GFR (Non- 38.3 BUN/Creatinine Ratio 15.1 Random Glucose 99 mg/dl Calcium Level 7.1 mg/dl Total Bilirubin 1.0 mg/dl Aspartate Amino Transf (AST/SGOT) 69 U/L Alanine Aminotransferase (ALT/SGPT) 52 U/L Alkaline Phosphatase 65 U/L Total Protein 5.0 gm/dl Albumin 2.2 gm/dl Globulin 2.8 gm/dl Albumin/Globulin Ratio 0.8 Procalcitonin 21.13 ng/ml Random Cortisol 50.25 mcg/dl White Blood Count 22.93 K/uL Red Blood Count 3.44 M/uL Hemoglobin 10.6 g/dL Hematocrit 31.0 % Mean Corpuscular Volume 90.1 fL Mean Corpuscular Hemoglobin 30.8 pg Mean Corpuscular Hemoglobin Concent 34.2 g/dl Platelet Count 160 K/uL Mean Platelet Volume 9.0 fL RDW Standard Deviation 43.3 fL RDW Coefficient of Variation 13.3 % Neutrophils % (Manual) 92.1 % Lymphocytes % (Manual) 0.9 % Monocytes % (Manual) 0.9 % Metamyelocytes % 6.1 % Neutrophils # (Manual) 21.12 K/uL Total Absolute Neutrophils 21.12 K/uL Lymphocytes # (Manual) 0.21 K/uL Total Absolute Lymphocytes 0.21 K/uL Monocytes # (Manual) 0.21 K/uL Metamyelocytes # 1.40 K/uL Dohle Bodies 1+ Lactic Acid Level 2.8 mmol/L Test 05/31/17 23:35 06/01/17 05:18 06/01/17 08:52 06/01/17 09:25 Sodium Level 141 mmol/L 141 mmol/L Potassium Level 3.3 mmol/L 3.9 mmol/L Chloride Level 113 mmol/L 113 mmol/L Carbon Dioxide Level 19 mmol/L 19 mmol/L Anion Gap 9.0 mmol/L 9.0 mmol/L Blood Urea Nitrogen 22 mg/dl 23 mg/dl Creatinine 1.30 mg/dl 1.30 mg/dl Est Creatinine Clear Calc Drug Dose 48.5 ml/min 48.5 ml/min Estimated GFR () 52.7 52.7 Estimated GFR (Non- 45.5 45.5 BUN/Creatinine Ratio 17.2 17.6 Random Glucose 112 mg/dl 98 mg/dl Calcium Level 7.0 mg/dl 6.7 mg/dl Phosphorus Level 3.3 mg/dl 3.9 mg/dl Magnesium Level 1.2 mg/dl 2.2 mg/dl Total Bilirubin 1.1 mg/dl 0.7 mg/dl Direct Bilirubin 0.8 mg/dl 0.4 mg/dl Aspartate Amino Transf (AST/SGOT) 72 U/L 61 U/L Alanine Aminotransferase (ALT/SGPT) 57 U/L 59 U/L Alkaline Phosphatase 56 U/L 54 U/L Pro-B-Type Natriuretic Peptide 9426 pg/ml 7294 pg/ml Total Protein 5.4 gm/dl 5.4 gm/dl Albumin 2.3 gm/dl 2.4 gm/dl White Blood Count 32.54 K/uL Red Blood Count 3.67 M/uL Hemoglobin 11.0 g/dL Hematocrit 32.6 % Mean Corpuscular Volume 88.8 fL Mean Corpuscular Hemoglobin 30.0 pg Mean Corpuscular Hemoglobin Concent 33.7 g/dl Platelet Count 163 K/uL Mean Platelet Volume 8.8 fL Neutrophils (%) (Auto) 85.3 % Lymphocytes (%) (Auto) 4.8 % Monocytes (%) (Auto) 3.3 % Eosinophils (%) (Auto) 0.1 % Basophils (%) (Auto) 0.1 % Neutrophils # (Auto) 27.75 K/uL Lymphocytes # (Auto) 1.56 K/uL Monocytes # (Auto) 1.07 K/uL Eosinophils # (Auto) 0.04 K/uL Basophils # (Auto) 0.03 K/uL RDW Standard Deviation 44.5 fL RDW Coefficient of Variation 13.6 % Immature Granulocyte % (Auto) 6.4 % Immature Granulocyte # (Auto) 2.09 K/uL Dohle Bodies 2+ Echinocytes 1+ Lactic Acid Level 2.0 mmol/L Creatine Kinase MB Ratio Creatine Kinase MB 6.0 ng/ml Troponin I 1.050 ng/ml Resident Tracking Resident Involvement: Resident Care Provided Care Provided: Adult [facility] Medicine
[2017-06-01] MEDS ORDERED: PERFLUTREN LIPID MICROSPHERE (DEFINITY) IV ONE (11:53)
[2017-06-01] MEDS ORDERED: FUROSEMIDE INJ 40 MG in SYRINGE 0 ML IV ONE (12:00)
[2017-06-01] MEDS: OXYCODONE HCL IR 5 MG TAB (IMMEDIATE RELEASE) PO PRN ×2 (12:39→19:35)
--- NOTE | 2017-06-01 12:46 | ECHOCARDIOGRAM REPORT ---
*NOTICE TO RECEIVING CONSTITUTION PARTY AGENCY This information is strictly Confidential and protected under [place] law. [place] law prohibits you from making any further disclosure of this information unless further disclosure is expressly permitted by the written consent of the person to whom it pertains or is authorized by law. A general authorization for the release of medical or other information is not sufficient for this purpose. Hospital accepts no responsibility if the information is made available to any other person, INCLUDING THE PATIENT. Interpretation Summary * Name: ELIZABETH MONTELONGO Study Date: 06/01/2017 11:24 AM BP: 114/72 mmHg * Patient Location: .[facility]ICU\S\E106\S\1 HR: 88 * : 1960 (M/d/yyyy) Gender: Female Height: 64 in * Age: 56 yrs Ethnicity: [place] Weight: 188 lb * Ordering Physician: Morgan Whiteside * Referring Physician: Self, Referred * Performed By: Veronica Abernathy RDCS * * Reason For Study: SOB, ?CHF * BSA: 1.9 m2 * Normal overall left ventricular systolic function. * Left ventricular diastolic dysfunction. * Apical akinesis of the left ventricle. * Normal chamber dimensions. * Mild mitral regurgitation. * Mild to moderate pulmonic regurgitation. * Mild tricuspid regurgitation. * Mildly elevated estimated right ventricular systolic pressure. * Elevated estimated central venous pressure. * Normal right ventricular systolic function. Procedure Details * A contrast injection of Definity was performed to improve assessment of LV function. * Contrast was injected into an intravenous site in the left arm. * One vial of Definity ultrasound contrast was diluted in normal saline to a total volume of 10 ml. A total of '2' ml of solution was administered during imaging. * Lot # [id number] of Definity utilized for procedure. * Expiration date JUL 07. * The attending nurse who injected the contrast agent was ANDRE MCCLAIN. Left Ventricle * The left ventricle is normal in size. * There is no thrombus. * There is mild concentric left ventricular hypertrophy. * Ejection Fraction = 55-60%. * Left ventricular systolic function is normal. * Diastolic dysfunction, Grade II (pseudonormalization pattern). * There is apical akinesis. Right Ventricle * The right ventricle is normal in size and function. Atria * The left atrial size is normal. * Right atrial size is normal. * No ASD detected; PFO is not assessed. Mitral Valve * The mitral valve is normal. * There is no mitral valve stenosis. * There is mild mitral regurgitation. Tricuspid Valve * The tricuspid valve is normal. * There is no tricuspid stenosis. * There is mild tricuspid regurgitation. * Right ventricular systolic pressure is elevated at 30-40mmHg. Aortic Valve * The aortic valve is trileaflet. * The aortic valve opens well. * Aortic stenosis is absent. * No aortic regurgitation is present. Pulmonic Valve * The pulmonic valve is not well seen, but is grossly normal. * There is no pulmonic valvular stenosis. * Mild to moderate pulmonic valvular regurgitation. Great Vessels * The aortic root is normal size. Pericardium/Pleural * There is no pericardial effusion. Great Vessels * The inferior vena cava is mildly dilated. MMode 2D Measurements and Calculations IVSd 1.3 cm IVSs 1.6 cm LVIDd 4.2 cm LVIDs 3.1 cm LVPWd 1.2 cm LVPWs 1.5 cm IVS/LVPW 1.1 FS 27.4 % EDV(Teich) 79.9 ml ESV(Teich) 37.1 ml EF(Teich) 53.6 % EDV(cubed) 75.7 ml ESV(cubed) 29.0 ml EF(cubed) 61.7 % % IVS thick 21.9 % % LVPW thick 25.1 % LV mass(C)d 191.5 grams LV mass(C)dI 100.5 grams/m\S\2 LV mass(C)s 171.1 grams LV mass(C)sI 89.8 grams/m\S\2 SV(Teich) 42.8 ml SI(Teich) 22.5 ml/m\S\2 SV(cubed) 46.7 ml SI(cubed) 24.5 ml/m\S\2 Ao root diam 3.6 cm Ao root area 10.4 cm\S\2 LA dimension 3.3 cm LA/Ao 0.91 LVAd ap4 27.5 cm\S\2 LVLd ap4 8.8 cm EDV(MOD-sp4) 70.3 ml EDV(sp4-el) 73.4 ml LVAs ap4 15.3 cm\S\2 LVLs ap4 7.1 cm ESV(MOD-sp4) 26.9 ml ESV(sp4-el) 28.2 ml EF(MOD-sp4) 61.7 % EF(sp4-el) 61.6 % LVAd ap2 20.3 cm\S\2 LVLd ap2 6.9 cm EDV(MOD-sp2) 48.8 ml EDV(sp2-el) 50.6 ml LVAs ap2 12.0 cm\S\2 LVLs ap2 5.7 cm ESV(MOD-sp2) 20.0 ml ESV(sp2-el) 21.2 ml EF(MOD-sp2) 59.0 % EF(sp2-el) 58.1 % LVLd %diff -27.20 % EDV(MOD-bp) 66.4 ml LVLs %diff -23.22 % ESV(MOD-bp) 25.3 ml EF(MOD-bp) 61.9 % SV(MOD-sp4) 43.4 ml SI(MOD-sp4) 22.8 ml/m\S\2 SV(MOD-sp2) 28.7 ml SI(MOD-sp2) 15.1 ml/m\S\2 SV(MOD-bp) 41.1 ml SI(MOD-bp) 21.6 ml/m\S\2 SV(sp4-el) 45.2 ml SI(sp4-el) 23.7 ml/m\S\2 SV(sp2-el) 29.4 ml SI(sp2-el) 15.4 ml/m\S\2 Doppler Measurements and Calculations MV E max carla 83.0 cm/sec MV A max carla 67.9 cm/sec MV E/A 1.2 MV dec time 0.15 sec Ao V2 max 94.4 cm/sec Ao max PG 3.6 mmHg Ao max PG (full) -0.11 mmHg LV V1 max PG 3.7 mmHg LV V1 max 95.8 cm/sec TR max carla 284.3 cm/sec
--- NOTE | 2017-06-01 17:03 | Cardiology Consultation ---
Cardiology Consultation Date of Consultation: Jun 01, 2017. Requesting Physician: Dr. Doyle Reason for Consultation: Abnormal cardiac enzymes Pt evaluation today including: conversation w/ patient, physical exam, lab review, review of studies, review of inpatient medication list History of Present Illness Patient presented with right flank pain radiating to the right lower back, had surgery for a kidney stone today. She reports no chest discomfort during this, and has had no chest discomfort prior to admission. Prior to this event she was very active and has had no difficulty with activities. She does not smoke, she does not have hypertension, she has no family history that she knows of of coronary artery disease. At the time of evaluation she feels well, the discomfort she presented with has resolved. She does not have chest discomfort although notes that she was somewhat shortness of breath around the time of surgery. Past Medical/Surgical History (1) Left-sided epistaxis Social History Smoking Status: Never Smoker History of Alcohol Use: No Review of Systems Constitutional: No fever, No weight loss, No weakness Respiratory: + see HPI, + shortness of breath, No cough, No sputum, No wheezing , No dyspnea on exertion Cardiac: + see HPI, No orthopnea, No PND, No edema, No claudication Abdomen: No pain, No nausea, No vomiting, No diarrhea, No GI bleeding Female : No problem reported Neurologic: No paralysis, No weakness, No numbness/tingling, No balance problems Heme: No abnormal bleeding/bruising, No clotting problems Endo: No fatigue Skin: No problem reported All Other Systems: Reviewed and Negative Allergies Coded Allergies: No Known Allergies (Unverified , 05/30/17) Medications Current Inpatient Medications Medications (Trade) Dose Ordered Sig/Dipesh Route Start Time Stop Time Status Last Admin Dose Admin Ondansetron HCl (Zofran Inj) 4 mg Q6H PRN IV 05/31/17 04:00 06/30/17 03:59 05/31/17 07:47 4 MG Promethazine HCl 12.5 mg/Sodium Chloride 50.5 ml @ 204 mls/hr Q6H PRN IV 05/31/17 04:00 06/30/17 03:59 Tamsulosin HCl (Flomax Cap) 0.4 mg QAM PO 05/31/17 09:00 06/30/17 08:59 06/01/17 09:57 0.4 MG Ciprofloxacin/ Dextrose 400 mg/ Prmx 200 ml @ 100 mls/hr Q12H IV 06/01/17 09:00 06/01/17 23:59 06/01/17 09:11 100 MLS/HR Acetaminophen (Tylenol Tab) 650 mg Q6 PRN PO 06/01/17 08:45 07/01/17 08:44 06/01/17 09:58 650 MG Ciprofloxacin (Cipro Tab) 500 mg BID PO 06/02/17 09:00 06/14/17 23:59 Enoxaparin Sodium (Lovenox Inj) 40 mg DAILY SQ 06/01/17 09:30 07/01/17 09:29 06/01/17 09:57 40 MG Oxycodone HCl (Roxicodone Immediate Rel Tab) 5 mg Q4H PRN PO 06/01/17 09:15 06/15/17 09:14 06/01/17 12:39 5 MG Physical Exam Vital Signs Past 12 Hours Date Time Temp Pulse Resp B/P (MAP) Pulse Ox O2 Delivery O2 Flow Rate FiO2 06/01/17 16:04 36.5 90 23 90/60 (70) 97 Room Air 06/01/17 16:00 Room Air 06/01/17 14:00 86 26 107/76 (86) 96 Nasal Cannula 2.0 06/01/17 13:00 83 26 109/72 (84) 98 Nasal Cannula 2.0 06/01/17 12:00 36.6 86 32 126/85 (99) 97 Nasal Cannula 2.0 06/01/17 12:00 Nasal Cannula 2.0 06/01/17 11:00 80 21 107/73 (84) 96 Nasal Cannula 2.0 06/01/17 10:01 88 27 114/72 (86) 98 Nasal Cannula 2.0 06/01/17 09:00 91 31 108/84 (92) 96 Nasal Cannula 2.0 06/01/17 08:00 Nasal Cannula 2.0 06/01/17 08:00 36.7 84 34 113/79 (90) 97 Nasal Cannula 2.0 06/01/17 08:00 Nasal Cannula 06/01/17 06:00 87 23 108/76 (87) 96 Nasal Cannula 2.0 Constitutional: General Apperance: heathly-appearing Level of Distress: NAD Psychiatric: Mental Status: active & alert Head: normocephalic Eyes: EOM: EOMI ENMT: normal ENT inspection, hearing grossly normal Neck: supple, no masses Lungs: Respiratory effort: no dyspnea, good air movement Auscultation: breath sounds normal, no wheezing Cardiovascular: Heart Auscultation: RRR, no murmurs, no rubs, no gallops Peripheral Pulses: Bruits: none appreciated Abdomen: Bowel Sounds: normal Inspection & Palpation: soft, no tenderness, guarding & rebound, no masses Musculoskeletal: normal strength (5/5 throughout) Extremities: no edema Neurologic: Cranial Nerves: grossly intact Sensation: grossly intact Data Laboratory Results: Last 24 Hours Test 05/31/17 20:43 05/31/17 20:48 05/31/17 20:51 05/31/17 21:30 Sodium Level 141 mmol/L Potassium Level 2.8 mmol/L Chloride Level 111 mmol/L Carbon Dioxide Level 21 mmol/L Anion Gap 9.0 mmol/L Blood Urea Nitrogen 23 mg/dl Creatinine 1.50 mg/dl Est Creatinine Clear Calc Drug Dose 42.0 ml/min Estimated GFR () 44.4 Estimated GFR (Non- 38.3 BUN/Creatinine Ratio 15.1 Random Glucose 99 mg/dl Calcium Level 7.1 mg/dl Total Bilirubin 1.0 mg/dl Aspartate Amino Transf (AST/SGOT) 69 U/L Alanine Aminotransferase (ALT/SGPT) 52 U/L Alkaline Phosphatase 65 U/L Total Protein 5.0 gm/dl Albumin 2.2 gm/dl Globulin 2.8 gm/dl Albumin/Globulin Ratio 0.8 Procalcitonin 21.13 ng/ml Random Cortisol 50.25 mcg/dl White Blood Count 22.93 K/uL Red Blood Count 3.44 M/uL Hemoglobin 10.6 g/dL Hematocrit 31.0 % Mean Corpuscular Volume 90.1 fL Mean Corpuscular Hemoglobin 30.8 pg Mean Corpuscular Hemoglobin Concent 34.2 g/dl Platelet Count 160 K/uL Mean Platelet Volume 9.0 fL RDW Standard Deviation 43.3 fL RDW Coefficient of Variation 13.3 % Neutrophils % (Manual) 92.1 % Lymphocytes % (Manual) 0.9 % Monocytes % (Manual) 0.9 % Metamyelocytes % 6.1 % Neutrophils # (Manual) 21.12 K/uL Total Absolute Neutrophils 21.12 K/uL Lymphocytes # (Manual) 0.21 K/uL Total Absolute Lymphocytes 0.21 K/uL Monocytes # (Manual) 0.21 K/uL Metamyelocytes # 1.40 K/uL Dohle Bodies 1+ Lactic Acid Level 2.8 mmol/L Test 05/31/17 23:35 06/01/17 05:18 06/01/17 08:52 06/01/17 09:25 Sodium Level 141 mmol/L 141 mmol/L Potassium Level 3.3 mmol/L 3.9 mmol/L Chloride Level 113 mmol/L 113 mmol/L Carbon Dioxide Level 19 mmol/L 19 mmol/L Anion Gap 9.0 mmol/L 9.0 mmol/L Blood Urea Nitrogen 22 mg/dl 23 mg/dl Creatinine 1.30 mg/dl 1.30 mg/dl Est Creatinine Clear Calc Drug Dose 48.5 ml/min 48.5 ml/min Estimated GFR () 52.7 52.7 Estimated GFR (Non- 45.5 45.5 BUN/Creatinine Ratio 17.2 17.6 Random Glucose 112 mg/dl 98 mg/dl Calcium Level 7.0 mg/dl 6.7 mg/dl Phosphorus Level 3.3 mg/dl 3.9 mg/dl Magnesium Level 1.2 mg/dl 2.2 mg/dl Total Bilirubin 1.1 mg/dl 0.7 mg/dl Direct Bilirubin 0.8 mg/dl 0.4 mg/dl Aspartate Amino Transf (AST/SGOT) 72 U/L 61 U/L Alanine Aminotransferase (ALT/SGPT) 57 U/L 59 U/L Alkaline Phosphatase 56 U/L 54 U/L Pro-B-Type Natriuretic Peptide 9426 pg/ml 7294 pg/ml Total Protein 5.4 gm/dl 5.4 gm/dl Albumin 2.3 gm/dl 2.4 gm/dl White Blood Count 32.54 K/uL Red Blood Count 3.67 M/uL Hemoglobin 11.0 g/dL Hematocrit 32.6 % Mean Corpuscular Volume 88.8 fL Mean Corpuscular Hemoglobin 30.0 pg Mean Corpuscular Hemoglobin Concent 33.7 g/dl Platelet Count 163 K/uL Mean Platelet Volume 8.8 fL Neutrophils (%) (Auto) 85.3 % Lymphocytes (%) (Auto) 4.8 % Monocytes (%) (Auto) 3.3 % Eosinophils (%) (Auto) 0.1 % Basophils (%) (Auto) 0.1 % Neutrophils # (Auto) 27.75 K/uL Lymphocytes # (Auto) 1.56 K/uL Monocytes # (Auto) 1.07 K/uL Eosinophils # (Auto) 0.04 K/uL Basophils # (Auto) 0.03 K/uL RDW Standard Deviation 44.5 fL RDW Coefficient of Variation 13.6 % Immature Granulocyte % (Auto) 6.4 % Immature Granulocyte # (Auto) 2.09 K/uL Dohle Bodies 2+ Echinocytes 1+ Lactic Acid Level 2.0 mmol/L Creatine Kinase MB Ratio Creatine Kinase MB 6.0 ng/ml Troponin I 1.050 ng/ml Test 06/01/17 12:01 06/01/17 15:28 06/01/17 16:04 Bedside Glucose 87 mg/dl 71 mg/dl Troponin I 1.280 ng/ml Imaging: A chest x-ray this morning shows prominent pulmonary vasculature but no congestive heart failure An echocardiogram done today shows normal left ventricular systolic function overall although there is apical akinesis with normal chamber dimensions and mild mitral regurgitation. EKG: An electrocardiogram this morning shows sinus rhythm at 85 bpm, it is normal. Telemetry reviewed: Sinus rhythm, no significant arrhythmia Assessment & Plan #1. Elevated troponin: I suspect her elevated troponin is due to her prolonged hypotension from sepsis. She has no risk factors for coronary artery disease ( although I do not see a lipid profile this admission) and she has no symptoms to suggest significant coronary artery disease. I would trend her troponins, but at this point I would not consider invasive evaluation. #2. Possible coronary disease: I suspect she does not have significant coronary disease but is certainly possible. She has no significant risk factors (lipid profile not available), and her wall motion abnormalities may be due to the sepsis. Her electric cart again does not show any acute cardiac event. If her enzymes do not elevate significantly it might be prudent to perform a stress echo in the future, probably not this admission. Thank you for allowing me to participate in her care.
[2017-06-02 03:45] VITALS: BP 113/68; PULSE 96; TEMP 36.9; O2SAT 92
[2017-06-02 04:18] LABS: HEMATOCRIT 34.1 % (37-47); MEAN CELL VOLUME 87.9 fL (80-100); MEAN CORPUSCULAR HEMOGLOBIN 30.4 pg (25-34); MEAN CORPUSCULAR HGB CONC 34.6 g/dl (32-36); MEAN PLATELET VOLUME 9.2 fL (7.4-10.4); PLATELET COUNT 154 K/uL (130-400); RED BLOOD COUNT 3.88 M/uL (4.2-5.4); WHITE BLOOD COUNT 35.84 K/uL (4.8-10.8)
[2017-06-02 04:19] LABS: BASO % 0.1 %; BASO ABS # 0.02 K/uL (0-0.2); COMPLETE YES; DOHLE BODIES 1+; ECHINOCYTES 1+; EOS % 0.2 %; IG% 6.1 %; LYMPH % 6.9 %; LYMPH ABS # 2.47 K/uL (1.2-3.4); MONO % 4.6 %; NEUT % 82.1 %; VACUOLIZATION 1+
[2017-06-02 04:21] LABS: BUN/CREATININE RATIO 26.4 (10-20); CALCIUM 7.4 mg/dl (8.5-10.1); CREATININE 0.85 mg/dl (0.60-1.20); POTASSIUM 3.6 mmol/L (3.5-5.1)
[2017-06-02 07:42] VITALS: BP 119/66; PULSE 83; TEMP 36.8; O2SAT 95
--- NOTE | 2017-06-02 08:33 | Progress Note ---
Progress Note Date of Service Jun 02, 2017. Progress Note S: Doing much better subjectively - still with a cough - minimal flank or abdominal pain O: 06/02/17 03:48 Red Blood Count 3.88, Mean Corpuscular Volume 87.9, Mean Corpuscular Hemoglobin 30.4, Mean Corpuscular Hemoglobin Concent 34.6, Mean Platelet Volume 9.2, Neutrophils (%) (Auto) 82.1, Lymphocytes (%) (Auto) 6.9, Monocytes (%) (Auto) 4.6, Eosinophils (%) (Auto) 0.2, Basophils (%) (Auto) 0.1, Neutrophils # (Auto) 29.43, Lymphocytes # (Auto) 2.47, Monocytes # (Auto) 1.66, Eosinophils # (Auto) 0.06, Basophils # (Auto) 0.02 06/02/17 03:48 Test 06/01/17 08:52 06/01/17 09:25 06/01/17 16:04 06/02/17 03:48 Creatine Kinase MB Ratio (0-3.0) Creatine Kinase MB 6.0 ng/ml (0.5-3.6) Pro-B-Type Natriuretic Peptide 7294 pg/ml (0-900) Bedside Glucose 71 mg/dl (70-90) White Blood Count 35.84 K/uL (4.8-10.8) Red Blood Count 3.88 M/uL (4.2-5.4) Hemoglobin 11.8 g/dL (12.0-16.0) Hematocrit 34.1 % (37-47) Mean Corpuscular Volume 87.9 fL (80-100) Mean Corpuscular Hemoglobin 30.4 pg (25-34) Mean Corpuscular Hemoglobin Concent 34.6 g/dl (32-36) Platelet Count 154 K/uL (130-400) Mean Platelet Volume 9.2 fL (7.4-10.4) Neutrophils (%) (Auto) 82.1 % Lymphocytes (%) (Auto) 6.9 % Monocytes (%) (Auto) 4.6 % Eosinophils (%) (Auto) 0.2 % Basophils (%) (Auto) 0.1 % Neutrophils # (Auto) 29.43 K/uL (1.4-6.5) Lymphocytes # (Auto) 2.47 K/uL (1.2-3.4) Monocytes # (Auto) 1.66 K/uL (0.11-0.59) Eosinophils # (Auto) 0.06 K/uL (0-0.5) Basophils # (Auto) 0.02 K/uL (0-0.2) RDW Standard Deviation 43.4 fL (36.4-46.3) RDW Coefficient of Variation 13.5 % (11.5-14.5) Immature Granulocyte % (Auto) 6.1 % Immature Granulocyte # (Auto) 2.20 K/uL (0.00-0.02) Toxic Vacuolation 1+ Dohle Bodies 1+ Echinocytes 1+ Anion Gap 7.0 mmol/L (3-11) Est Creatinine Clear Calc Drug Dose 77.4 ml/min Estimated GFR () 88.2 Estimated GFR (Non- 76.1 BUN/Creatinine Ratio 26.4 (10-20) Calcium Level 7.4 mg/dl (8.5-10.1) Troponin I 0.916 ng/ml (0-0.045) Vital Signs Past 12 Hours Date Time Temp Pulse Resp B/P (MAP) Pulse Ox O2 Delivery O2 Flow Rate FiO2 06/02/17 07:42 36.8 83 18 119/66 (83) 95 06/02/17 04:46 Room Air 06/02/17 03:45 36.9 96 19 113/68 (83) 92 Room Air 06/02/17 00:12 Room Air 06/01/17 23:20 36.8 92 17 95/57 (70) 93 Room Air NAD AAOx3 no resp distress RRR abd soft A/P: s/p emergent ureteral stent for R obstructing/infected calculus - leukocytosis increased today - renal function is excellent - plan for cont abx coverage x 14d total - out pt f/u for stone treatment
--- NOTE | 2017-06-02 08:57 | Cardiology Follow-Up ---
Subjective Date of Service: Jun 02, 2017. Pt evaluation today including: conversation w/ patient, physical exam, lab review, review of studies, review of inpatient medication list History of Present Illness Patient presented with right flank pain radiating to the right lower back, had surgery for a kidney stone today. She reports no chest discomfort during this, and has had no chest discomfort prior to admission. Prior to this event she was very active and has had no difficulty with activities. She does not smoke, she does not have hypertension, she has no family history that she knows of of coronary artery disease. Today she is feeling tired, she says she is "wiped out" but is not having any shortness of breath or chest discomfort and is sitting at her bedside. Social History Smoking Status: Never Smoker History of Alcohol Use: No Review of Systems Respiratory: + see HPI, No cough, No sputum, No wheezing, No shortness of breath, No dyspnea on exertion Cardiac: + see HPI, No chest pain, No orthopnea, No PND, No edema, No claudication Medications No cardiovascular Objective Vital Signs Past 12 Hours Date Time Temp Pulse Resp B/P (MAP) Pulse Ox O2 Delivery O2 Flow Rate FiO2 06/02/17 07:42 36.8 83 18 119/66 (83) 95 06/02/17 04:46 Room Air 06/02/17 03:45 36.9 96 19 113/68 (83) 92 Room Air 06/02/17 00:12 Room Air 06/01/17 23:20 36.8 92 17 95/57 (70) 93 Room Air Last Recorded Weight-Kilograms: 85.600 Physical Exam Constitutional: General Apperance: heathly-appearing Level of Distress: NAD Lungs: Respiratory effort: no dyspnea, good air movement Auscultation: breath sounds normal, no wheezing Cardiovascular: Heart Auscultation: RRR, no murmurs, no rubs, no gallops Peripheral Pulses: Bruits: none appreciated Extremities: no edema Data Laboratory Results: Last 24 Hours Test 06/01/17 08:52 06/01/17 09:25 06/01/17 12:01 06/01/17 15:28 Creatine Kinase MB Ratio Creatine Kinase MB 6.0 ng/ml Troponin I 1.050 ng/ml 1.280 ng/ml Pro-B-Type Natriuretic Peptide 7294 pg/ml Bedside Glucose 87 mg/dl Test 06/01/17 16:04 06/01/17 21:27 06/02/17 03:48 Bedside Glucose 71 mg/dl Troponin I 1.340 ng/ml 0.916 ng/ml White Blood Count 35.84 K/uL Red Blood Count 3.88 M/uL Hemoglobin 11.8 g/dL Hematocrit 34.1 % Mean Corpuscular Volume 87.9 fL Mean Corpuscular Hemoglobin 30.4 pg Mean Corpuscular Hemoglobin Concent 34.6 g/dl Platelet Count 154 K/uL Mean Platelet Volume 9.2 fL Neutrophils (%) (Auto) 82.1 % Lymphocytes (%) (Auto) 6.9 % Monocytes (%) (Auto) 4.6 % Eosinophils (%) (Auto) 0.2 % Basophils (%) (Auto) 0.1 % Neutrophils # (Auto) 29.43 K/uL Lymphocytes # (Auto) 2.47 K/uL Monocytes # (Auto) 1.66 K/uL Eosinophils # (Auto) 0.06 K/uL Basophils # (Auto) 0.02 K/uL RDW Standard Deviation 43.4 fL RDW Coefficient of Variation 13.5 % Immature Granulocyte % (Auto) 6.1 % Immature Granulocyte # (Auto) 2.20 K/uL Toxic Vacuolation 1+ Dohle Bodies 1+ Echinocytes 1+ Sodium Level 141 mmol/L Potassium Level 3.6 mmol/L Chloride Level 109 mmol/L Carbon Dioxide Level 25 mmol/L Anion Gap 7.0 mmol/L Blood Urea Nitrogen 22 mg/dl Creatinine 0.85 mg/dl Est Creatinine Clear Calc Drug Dose 77.4 ml/min Estimated GFR () 88.2 Estimated GFR (Non- 76.1 BUN/Creatinine Ratio 26.4 Random Glucose 76 mg/dl Calcium Level 7.4 mg/dl Telemetry reviewed: Sinus rhythm, no significant abnormality Assessment and Plan #1. Elevated troponin: Her troponins have now started to trend down, the peak was 1.3. I suspect her elevated troponin is due to her prolonged hypotension from sepsis. She has no risk factors for coronary artery disease (although I do not see a lipid profile) and she has no symptoms to suggest significant coronary artery disease. At this point I would not consider invasive evaluation. #2. Possible coronary disease: I suspect she does not have significant coronary disease but is certainly possible. She has no significant risk factors (lipid profile not available), and her wall motion abnormalities may be due to the sepsis. Her electrocardiogram does not show any acute cardiac event. I would not pursue further cardiac evaluation now, however it would be prudent to obtain a stress echo in the future (both to evaluate her wall motion abnormality which may resolve and to look for myocardial ischemia), I would schedule that for around one month. From my standpoint she can go home, I will arrange a one-month stress test and follow-up office visit. Thank you for allowing me to participate in her care.
[2017-06-02] MEDS ORDERED: CIPROFLOXACIN 500 MG TAB PO SCH (09:00)
[2017-06-02] MEDS: TAMSULOSIN HCL 0.4 MG CAP PO SCH (10:01)
[2017-06-02] MEDS: ENOXAPARIN 40 MG/0.4 ML SYR SQ SCH (10:01)
[2017-06-02] MEDS ORDERED: SODIUM CHLORIDE 0.65% NA SOLN 45 ML (OCEAN) PRN (10:15)
[2017-06-02 10:26] VITALS: BP 116/71; PULSE 72
[2017-06-02] MEDS ORDERED: SODIUM CHLORIDE 0.65% NA SOLN 45 ML (OCEAN) ONE (10:30)
[2017-06-02 11:39] VITALS: BP 119/77; PULSE 90; TEMP 36.7; O2SAT 92
--- NOTE | 2017-06-02 12:04 | Progress Note ---
Subjective Date of Service: Jun 02, 2017. Subjective Pt evaluation today including: conversation w/ patient, physical exam, chart review, lab review 56 yo female who downgraded from ICU to telemetry yesterday. Px here for right hydronephrosis and complication from right ureteral stone S/P stent placement and stone removal (Day1). Patient reports feeling well, continues to no longer have nausea, no longer having back pain, no fever or chills. Patient reports no longer having shortess of breath, and reports ambulating without difficulty Problem List Medical Problems: (1) Right ureteral calculus Status: Acute Review of Systems All Other Systems: Reviewed and Negative Medications Current Inpatient Medications Medications (Trade) Dose Ordered Sig/Dipesh Route Start Time Stop Time Status Last Admin Dose Admin Ondansetron HCl (Zofran Inj) 4 mg Q6H PRN IV 05/31/17 04:00 06/30/17 03:59 05/31/17 07:47 4 MG Promethazine HCl 12.5 mg/Sodium Chloride 50.5 ml @ 204 mls/hr Q6H PRN IV 05/31/17 04:00 06/30/17 03:59 Tamsulosin HCl (Flomax Cap) 0.4 mg QAM PO 05/31/17 09:00 06/30/17 08:59 06/02/17 10:01 0.4 MG Acetaminophen (Tylenol Tab) 650 mg Q6 PRN PO 06/01/17 08:45 07/01/17 08:44 06/01/17 19:34 650 MG Ciprofloxacin (Cipro Tab) 500 mg BID PO 06/02/17 09:00 06/14/17 23:59 06/02/17 10:00 500 MG Enoxaparin Sodium (Lovenox Inj) 40 mg DAILY SQ 06/01/17 09:30 07/01/17 09:29 06/02/17 10:01 40 MG Oxycodone HCl (Roxicodone Immediate Rel Tab) 5 mg Q4H PRN PO 06/01/17 09:15 06/15/17 09:14 06/01/17 19:35 5 MG Sodium Chloride ([place] Nasal [place]) 2 sprays PRN PRN NA 06/02/17 10:15 07/02/17 10:14 Objective Vital Signs Date Time Temp Pulse Resp B/P (MAP) Pulse Ox O2 Delivery O2 Flow Rate FiO2 06/02/17 11:39 36.7 90 18 119/77 (91) 92 06/02/17 10:26 72 116/71 (86) 06/02/17 08:00 Room Air 06/02/17 07:42 36.8 83 18 119/66 (83) 95 06/02/17 04:46 Room Air 06/02/17 03:45 36.9 96 19 113/68 (83) 92 Room Air 06/02/17 00:12 Room Air 06/01/17 23:20 36.8 92 17 95/57 (70) 93 Room Air 06/01/17 20:30 37.0 96 22 99/60 (73) 93 Room Air 06/01/17 20:27 Room Air 06/01/17 18:21 36.6 91 20 111/73 (86) 95 Room Air 06/01/17 17:30 36.5 90 23 97 06/01/17 16:04 36.5 90 23 90/60 (70) 97 Room Air 06/01/17 16:00 Room Air 06/01/17 14:00 86 26 107/76 (86) 96 Nasal Cannula 2.0 06/01/17 13:00 83 26 109/72 (84) 98 Nasal Cannula 2.0 Physical Exam General Appearance: WD/WN, no apparent distress Neck: supple, no adenopathy Respiratory/Chest: chest non-tender, lungs clear, normal breath sounds, no respiratory distress Cardiovascular: regular rate, rhythm, no edema, no gallop, no JVD Abdomen: normal bowel sounds, non tender, soft, no organomegaly Extremities: no pedal edema Neurologic/Psychiatric: alert, oriented x 3 Skin: normal color, warm/dry Laboratory Results Last 24 Hours Test 06/01/17 15:28 06/01/17 16:04 06/01/17 21:27 06/02/17 03:48 Troponin I 1.280 ng/ml 1.340 ng/ml 0.916 ng/ml Bedside Glucose 71 mg/dl White Blood Count 35.84 K/uL Red Blood Count 3.88 M/uL Hemoglobin 11.8 g/dL Hematocrit 34.1 % Mean Corpuscular Volume 87.9 fL Mean Corpuscular Hemoglobin 30.4 pg Mean Corpuscular Hemoglobin Concent 34.6 g/dl Platelet Count 154 K/uL Mean Platelet Volume 9.2 fL Neutrophils (%) (Auto) 82.1 % Lymphocytes (%) (Auto) 6.9 % Monocytes (%) (Auto) 4.6 % Eosinophils (%) (Auto) 0.2 % Basophils (%) (Auto) 0.1 % Neutrophils # (Auto) 29.43 K/uL Lymphocytes # (Auto) 2.47 K/uL Monocytes # (Auto) 1.66 K/uL Eosinophils # (Auto) 0.06 K/uL Basophils # (Auto) 0.02 K/uL RDW Standard Deviation 43.4 fL RDW Coefficient of Variation 13.5 % Immature Granulocyte % (Auto) 6.1 % Immature Granulocyte # (Auto) 2.20 K/uL Toxic Vacuolation 1+ Dohle Bodies 1+ Echinocytes 1+ Sodium Level 141 mmol/L Potassium Level 3.6 mmol/L Chloride Level 109 mmol/L Carbon Dioxide Level 25 mmol/L Anion Gap 7.0 mmol/L Blood Urea Nitrogen 22 mg/dl Creatinine 0.85 mg/dl Est Creatinine Clear Calc Drug Dose 77.4 ml/min Estimated GFR () 88.2 Estimated GFR (Non- 76.1 BUN/Creatinine Ratio 26.4 Random Glucose 76 mg/dl Calcium Level 7.4 mg/dl Assessment and Plan Right ureteral stone S/P removal Patient had procedure 2 nights ago by Urology as she was decompensating with hypotension and elevated heart rate, fever. After procedure, bloody and purulent fluid was removed via urinary catherther. Patient continues to feel well. Will continue antibiotics as an outpatient for a total of 14 days of antibiotics. WBC elevated, but no other signs of SIRS. Patient may go home today. SOB likely related with volume that was used to replenish patient yesterday as she was decompensating. This has resolved. elevated troponin likely stress induced cardiomyopathy. echo showed normal EF, however, it did show apical kinesis of the LV. Cardio on board, recommend outpatient stress test in one month. Likely due to hypotensive shock from infection, and doubt CAD as patient does not have any risk factors. She should get Lipid panel as an outpatient. Discharge planning: home
[2017-06-02] MEDS ORDERED: CPR500 OR (12:20)
--- NOTE | 2017-06-02 12:26 | Discharge Instructions ---
Discharge Instructions Date of Service Jun 02, 2017. Admission Reason for Admission: Hydronephrosis Due To Obstruction Of Ureter, Pyelo Discharge Discharge Diagnosis / Problem: Hydronephrosis of right kidney due to obstruction of ureter. S/P stent Discharge Goals Goal(s): Decrease discomfort, Improve function, Increase independence Activity Recommendations Activity Limitations: as noted below Lifting Limitations: gradually increase as tolerated Exercise/Sports Limitations: gradually increase as tolerated May Resume Sexual Activity: when tolerated Shower/Bathe: no limitations Driving or Machine Use: no limitations . Current Hospital Diet Patient's current hospital diet: AHA Diet (Heart Healthy) Discharge Diet Recommended Diet: AHA Diet (Heart Healthy) Fluid Restriction: None Procedures Procedures Performed: Cystoscopy, right stent placement ([id number]) Pending Studies Studies pending at discharge: no Medical Emergencies . Who to Call and When: Medical Emergencies: If at any time you feel your situation is an emergency, please call 911 immediately. . Non-Emergent Contact Non-Emergency issues call your: Primary Care Provider, Stem Setter Call Non-Emergent contact if: temperature is above 101, your pain is worsening . Past History Medical & Surgical History: (1) Pyelonephritis (2) Hydronephrosis due to obstruction of ureter . "Provider Documentation" section prepared by Troy Doyle. . Public Health Clinical Nurse Specialist Recommendations Public Health Clinical Nurse Specialist Recommendations: F/u with Cardiology as an out patient for stress test in one month. F/U with Urology in about 2 weeks. F/U with PCP in 7 days or less. VTE Core Measure Inpt VTE Proph given/why not?: Omar Kiran, SCD's
[2017-06-02 12:33] VITALS: BP 119/77; PULSE 90; TEMP 36.7; O2SAT 92
--- NOTE | 2017-06-02 12:39 | Discharge Summary ---
Discharge Summary Date of Service Jun 02, 2017. Discharge Summary Admission Date: May 31, 2017 at 03:55 Discharge Date: Jun 02, 2017 Discharge Disposition: Home Principal Diagnosis: Septic shock due to right ureteral stone casuing right hydronephrosis Problems/Secondary Diagnoses: Elevated troponin with apical akinesis of the LV. Medication Reconciliation New Medications: Ciprofloxacin (Ciprofloxacin HCl) 500 Mg Tab 500 MG OR BID for 12 Days, #23 TAB Continued Medications: Naproxen (Naprosyn) 500 Mg Tab 500 MG PO BID for 7 Days, #14 TAB Ondasetron Odt (Zofran Odt) 4 Mg Tab 4 MG SL Q6H for Nausea, #10 TAB Oxycodone Ir (Roxicodone Ir) 5 Mg Tab 1-2 TAB PO Q6H PRN for Severe Pain for 3 Days, #24 TAB Tamsulosin Hcl (Flomax) 0.4 Mg Cap 0.4 MG PO DAILY for 7 Days, #7 CAP Discontinued Medications: Levofloxacin (Levaquin) 750 Mg Tab 750 MG PO DAILY for 5 Days, #5 TAB Discharge Exam Review of Systems: Constitutional: No fever, No chills Eyes: No worsening of vision, No eye pain Cardiovascular: No chest pain, No orthopnea, No PND Abdomen: No pain, No nausea, No vomiting Musculoskeletal: No joint pain, No muscle pain Neurologic: No memory loss, No paralysis Physical Exam: General Appearance: WD/WN, no apparent distress Neck: supple, no adenopathy Respiratory/Chest: chest non-tender, lungs clear, normal breath sounds Cardiovascular: regular rate, rhythm, no edema, no gallop Abdomen / GI: normal bowel sounds, non tender, soft, no organomegaly Extremities: no pedal edema Skin: normal color, warm/dry Hospital Course Right ureteral stone S/P removal Patient had procedure 2 nights ago by Urology as she was decompensating with hypotension and elevated heart rate, fever. After procedure, bloody and purulent fluid was removed via urinary catherther. Patient continues to feel well. Will continue antibiotics as an outpatient for a total of 14 days of antibiotics. WBC elevated, but no other signs of SIRS. Patient may go home today. SOB likely related with volume that was used to replenish patient yesterday as she was decompensating. This has resolved. elevated troponin likely stress induced cardiomyopathy. echo showed normal EF, however, it did show apical kinesis of the LV. Cardio on board, recommend outpatient stress test in one month. Likely due to hypotensive shock from infection, and doubt CAD as patient does not have any risk factors. She should get Lipid panel as an outpatient. HPI is below History of Present Illness Source: patient, clinic records, hospital records Mrs Lopez is a 56 year old female who presented to the Emergency Room with chills and flank pain. She woke up with chills yesterday morning, intermittently continued to experience chills throughout the day. Around 7pm she had sudden onset right flank pain with radiation to her suprapubic area and groin. Severity 10/10 pain. Associated with nausea and vomiting. Moving continuously to try and get into a more comfortable position. Sharp, stabbing pain. She had a kidney stone which passed spontaneously 6 years previously. She denies any dysuria, change in frequency, smell or color of her urine. She denies any chest pain, shortness of breath, abdominal pain, diarrhea, constipation, palpitations, dizziness or syncope. While in the ER she was given Zofran and Phenergan but has continued to feel nauseous and vomited. Her case was discussed with Dr Stevens (Urology) by the Jennifer Rodas PA-C and advised patient can go home if tolerating oral medications with close follow up. Since she continues to have nausea and vomiting she was referred to the medicine service for admission. 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) Multi-Drug Resistant Organisms History of MDRO: No Allergies Coded Allergies: No Known Allergies (Unverified , 05/30/17) Home Medications Scheduled Levofloxacin (Levaquin), 750 MG PO DAILY Naproxen (Naprosyn), 500 MG PO BID Ondasetron Odt (Zofran Odt), 4 MG SL Q6H Tamsulosin Hcl (Flomax), 0.4 MG PO DAILY Scheduled PRN Oxycodone Ir (Roxicodone Ir), 1-2 TAB PO Q6H PRN for Severe Pain Review of Systems Constitutional: + chills, No fever Eyes: No worsening of vision, No eye pain, No redness, No diplopia ENT: No hearing loss, No nasal symptoms, No sore throat Respiratory: No cough, No sputum, No wheezing, No shortness of breath Cardiovascular: No chest pain, No orthopnea, No PND, No edema, No claudication , No palpitations Abdomen: + nausea, + vomiting, No pain, No diarrhea, No constipation, No GI bleeding Musculoskeletal: No joint pain, No muscle pain, No swelling, No calf pain Genitourinary - Female: No dysuria, No urinary frequency, No urinary urgency, No urinary incontinence, No urinary retention Neurologic: No weakness (no focal), No numbness/tingling Endocrine: No fatigue, No excessive thirst, No excessive urination Hematologic / Lymphatic: No abnormal bleeding/bruising Integumentary: No rash, No itch Physical Ex - H&P Physical Exam Vital Signs Date Time Temp Pulse Resp B/P (MAP) Pulse Ox O2 Delivery O2 Flow Rate FiO2 05/31/17 03:01 132/79 98 Room Air 05/31/17 03:00 75 18 05/31/17 02:49 64 05/31/17 02:42 130/73 05/31/17 01:00 70 18 132/96 95 Room Air 05/30/17 22:40 69 05/30/17 22:24 65 18 135/89 98 Room Air 05/30/17 21:23 36.4 72 24 123/80 99 Room Air General Appearance: WD/WN, + mild distress (chills) Head: normocephalic, atraumatic Eyes: normal inspection, PERRL, EOMI ENT: normal ENT inspection Neck: supple, no JVD, trachea midline Respiratory/Chest: chest non-tender, lungs clear, normal breath sounds, no respiratory distress, no accessory muscle use Cardiovascular: regular rate, rhythm, no edema, no murmur, normal peripheral pulses Abdomen/GI: normal bowel sounds, non tender, soft Back: + right CVA tenderness Extremities/Musculoskelatal: no calf tenderness, normal capillary refill, no pedal edema Neurologic/Psych: skin drier II-XII nml as tested, no motor/sensory deficits, alert, oriented x 3 Skin: normal color, warm/dry, no rash Diagnostics - H&P Diagnostics Laboratory Results Results Past 24 Hours Test 05/30/17 21:45 05/31/17 00:02 Range/Units White Blood Count 14.88 4.8-10.8 K/uL Red Blood Count 4.89 4.2-5.4 M/uL Hemoglobin 14.3 12.0-16.0 g/dL Hematocrit 43.7 37-47 % Mean Corpuscular Volume 89.4 80-100 fL Mean Corpuscular Hemoglobin 29.2 25-34 pg Mean Corpuscular Hemoglobin Concent 32.7 32-36 g/dl Platelet Count 406 130-400 K/uL Mean Platelet Volume 8.9 7.4-10.4 fL Neutrophils (%) (Auto) 74.6 % Lymphocytes (%) (Auto) 17.5 % Monocytes (%) (Auto) 6.6 % Eosinophils (%) (Auto) 0.7 % Basophils (%) (Auto) 0.3 % Neutrophils # (Auto) 11.12 1.4-6.5 K/uL Lymphocytes # (Auto) 2.60 1.2-3.4 K/uL Monocytes # (Auto) 0.98 0.11-0.59 K/uL Eosinophils # (Auto) 0.10 0-0.5 K/uL Basophils # (Auto) 0.04 0-0.2 K/uL RDW Standard Deviation 41.0 36.4-46.3 fL RDW Coefficient of Variation 12.6 11.5-14.5 % Immature Granulocyte % (Auto) 0.3 % Immature Granulocyte # (Auto) 0.04 0.00-0.02 K/uL Sodium Level 140 136-145 mmol/L Potassium Level 3.7 3.5-5.1 mmol/L Chloride Level 107 98-107 mmol/L Carbon Dioxide Level 24 21-32 mmol/L Anion Gap 9.0 3-11 mmol/L Blood Urea Nitrogen 12 7-18 mg/dl Creatinine 0.79 0.60-1.20 mg/dl Est Creatinine Clear Calc Drug Dose 79.8 ml/min Estimated GFR () 96.3 Estimated GFR (Non- 83.1 BUN/Creatinine Ratio 15.1 10-20 Random Glucose 106 70-99 mg/dl Calcium Level 9.1 8.5-10.1 mg/dl Total Bilirubin 0.5 0.2-1 mg/dl Direct Bilirubin 0.1 0-0.2 mg/dl Aspartate Amino Transf (AST/SGOT) 18 15-37 U/L Alanine Aminotransferase (ALT/SGPT) 28 12-78 U/L Alkaline Phosphatase 76 45-117 U/L Total Protein 7.7 6.4-8.2 gm/dl Albumin 3.8 3.4-5.0 gm/dl Lipase 235 73-393 U/L Urine Color YELLOW Urine Appearance CLEAR CLEAR Urine pH 5.0 4.5-7.5 Urine Specific [place] 1.022 1.000-1.030 Urine Protein NEG NEG Urine Glucose (UA) NEG NEG Urine Ketones TRACE NEG Urine Occult Blood 1+ NEG Urine Nitrite POS NEG Urine Bilirubin NEG NEG Urine Urobilinogen NEG NEG Urine Leukocyte Esterase SMALL NEG Urine WBC (Auto) >30 0-5 /hpf Urine RBC (Auto) 0-4 0-4 /hpf Urine Hyaline Casts (Auto) 1-5 0-5 /lpf Urine Epithelial Cells (Auto) 10-20 0-5 /lpf Urine Bacteria (Auto) 4+ NEG Microbiology Results 05/31/17 Urine Culture, Received Pending Diagnostic Radiology ABD/PELVIS WITHOUT FOR STONE CT DOSE: 1059.16 mGy.cm HISTORY: Flank pain Flank pain, eval for stone TECHNIQUE: Multiaxial CT images of the abdomen and pelvis were performed without the use of intravenous and oral contrast according to the standard department stone protocol. A dose lowering technique was utilized adhering to the principles of ALARA. COMPARISON STUDY: 12/28/2007 FINDINGS: Lung bases are clear. Several left renal cysts. Fullness of the renal collecting systems bilaterally. Right-sided renal calcifications slightly increased in prominence from the prior study. Largest calcification within the renal pelvis measures 9 mm. Smaller calcifications lower aspect left kidney are present. Slight fullness of the right ureter as compared to the left. 3 mm calculus right ureterovesical junction. Bladder is midline with no additional calcifications. Bowel pattern is nonobstructive. Scattered colonic diverticuli with no evidence of diverticulitis. IMPRESSION: 1. Bilateral nephrocalcinosis slightly progressive as compared to the prior exam in size as well as number. 2. 3 mm obstructing calculus right ureterovesical junction with mild right hydroureteronephrosis. The above report was generated using voice recognition software. It may contain grammatical, syntax or spelling errors. Electronically signed by: Rubio Pathak M.D. 05/30/2017 10:20 PM Dictated Date/Time: 05/30/2017 10:16 PM EKG Rate 64 bpm No ischemic changes Normal EKG, No prior EKG available Impression - H&P Impression Assessment and Plan 56 yo F with right renal stone, complicated UTI and intractable nausea and vomiting Renal colic - Pain control with acetaminophen, morphine - Urology consult in morning - Start on tamsulosin Complicated UTI/pyelonephritis - obstructing stone with hydronephrosis and CVA tenderness - blood cultures x2 given WBC elevated and having chills - broaden coverage with Zosyn VTE Prophylaxis - defer chemical prophylaxis pending urology consult and possible need for procedure - SCDs and TEDs Code - Full Disposition - admit to med/surge for pyelonephritis with obstructing right stone Total Time Spent: Greater than 30 minutes This includes examination of the patient, discharge planning, medication reconciliation, and communication with other providers. Discharge Instructions Please refer to the electronic Patient Visit Report (Discharge Instructions) for additional information. Follow-Up F/U with PCP in 7 days F/U with Cardiology in 1 month for stress test and F/U F/U with Urology in about 2 weeks Additional Copies To Morgan Starks,
[2017-06-02] MEDS ORDERED: TAMS0.4C38 PO (12:50)
[2017-06-07] MEDS ORDERED: CIPR-255 PO (13:29)
[2017-06-07] MEDS ORDERED: TAMS0.4C38 PO (13:29)
== END 2017-06-02 13:40 | disposition home or self-care (01) | DRG 871 ==
LOC: C.EDB 21:21 → C.MSN 05-31 03:55 → ENRESERV 05-31 04:08 → C.MED 05-31 19:13 → C.MSICU 05-31 20:05 → CMPBEDREQ 05-31 20:34 → ENRESERV 05-31 21:34 → C.2T 06-01 17:48
PROVIDERS: ADMIT Hospitalist; ATTEND Internal Medicine Sports Medicine
PROC: 0TJB8ZZ Inspection of Bladder, Via Natural or Artificial Opening Endoscopic (ICD-10-PCS; principal; 2017-05-31 22:00)
DX: R65.21 Severe sepsis with septic shock (principal); A41.9 Sepsis, unspecified organism; N39.0 Urinary tract infection, site not specified; N20.1 Calculus of ureter; N17.9 Acute kidney failure, unspecified; N23 Unspecified renal colic; I95.9 Hypotension, unspecified; E87.6 Hypokalemia; E83.42 Hypomagnesemia; A49.8 Other bacterial infections of unspecified site; R29.898 Other symptoms and signs involving the musculoskeletal system; Z90.49 Acquired absence of other specified parts of digestive tract

== ENCOUNTER → 2017-06-16 | Outpatient (CLI) | payer BC ==
[~2017-06-16] MED LIST: CIPR-255 PO; TAMS0.4C38 PO
== END | disposition home or self-care (01) ==
LOC: C.LABSPEC 17:19
PROVIDERS: ATTEND Urology
DX: N10 Acute pyelonephritis (principal)

== ENCOUNTER → 2017-06-18 | Outpatient (CLI) | payer BC | END | disposition home or self-care (01) | LOC: C.LABBC 14:15 | PROVIDERS: ATTEND Nurse Practitioner Family | DX: N20.0 Calculus of kidney (principal) ==

== ENCOUNTER → 2017-07-07 | Outpatient (CLI) | payer BC ==
[~2017-07-07] MED LIST changes: +CEPH500C PO; -CIPR-255 PO; +OXYC7.5T65 PO; +PHEN-775 PO; -TAMS0.4C38 PO
--- NOTE | 2017-07-07 18:26 | DIAGNOSTIC IMAGING REPORT ---
KUB HISTORY: N20.0 Nephrolithiasis BE DONE EITHER THE NIGHT BEFORE OR MORNI COMPARISON: Abdomen and pelvis CT 05/30/2017. FINDINGS: The bowel gas pattern is unremarkable. There are no dilated loops of small bowel to suggest an obstruction. Stable bilateral nephrolithiasis. Dominant stone within the lower pole of the right kidney measures 1 cm. A right ureteral stent appears to be in good position. Pelvic calcifications are nonspecific but favor phleboliths. No definite ureteral calculi. No pneumoperitoneum or pneumatosis. Cholecystectomy. IMPRESSION: 1. Stable bilateral nephrolithiasis. 2. No ureteral calculi. 3. A right ureteral stent appears to be in good position. Electronically signed by: Marcelino Rivera M.D. 07/07/2017 6:25 PM Dictated Date/Time: 07/07/2017 6:23 PM
== END | disposition home or self-care (01) ==
LOC: C.RAD 18:00
PROVIDERS: ATTEND Urology
DX: N20.0 Calculus of kidney (principal)

== ENCOUNTER 2017-07-08 09:08 | Day surgery (SDC) | payer BC ==
[2017-06-22 12:33] VITALS: Ht 162.6 cm; Wt 72.7 kg
[2017-06-24 15:55] LABS: BASO % 0.9 %; BASO ABS # 0.07 K/uL (0-0.2); COMPLETE YES; EOS % 4.6 %; HEMATOCRIT 38.6 % (37-47); IG% 0.5 %; LYMPH % 32.7 %; LYMPH ABS # 2.54 K/uL (1.2-3.4); MEAN CELL VOLUME 88.9 fL (80-100); MEAN CORPUSCULAR HGB CONC 33.7 g/dl (32-36); MEAN PLATELET VOLUME 8.7 fL (7.4-10.4); MONO % 9.4 %; NEUT % 51.9 %; PLATELET COUNT 429 K/uL (130-400); RED BLOOD COUNT 4.34 M/uL (4.2-5.4); WHITE BLOOD COUNT 7.76 K/uL (4.8-10.8)
[2017-06-24 16:02] LABS: BUN/CREATININE RATIO 17.2 (10-20); CALCIUM 8.9 mg/dl (8.5-10.1); CREATININE 0.79 mg/dl (0.60-1.20); POTASSIUM 4.1 mmol/L (3.5-5.1)
[~2017-07-08] VITALS: Ht 162.6 cm; Wt 72.7 kg
[~2017-07-08 09:08] MED LIST changes: +CEFAZOLIN 2000MG IV PUSH 10 ML IV SCH; -CEPH500C PO; +LACTATED RINGER'S 1000ML 1,000 ML IV SCH; -OXYC7.5T65 PO; -PHEN-775 PO
[2017-07-08 09:44] VITALS: BP 142/60; PULSE 76; TEMP 36.8; O2SAT 94
[2017-07-08] MEDS ORDERED: PROPOFOL IV EMULSION 10 MG/ML 20 ML VIAL IV ONE (09:56)
[2017-07-08] MEDS ORDERED: ONDANSETRON INJ 2 MG/ML 2 ML VIAL ONE (09:56)
[2017-07-08] MEDS ORDERED: FENTANYL CITRATE INJ 50 MCG/1 ML 2 ML VIAL ONE (09:56)
[2017-07-08] MEDS ORDERED: LIDOCAINE HCL 2% 2 ML VIAL (20MG/ML) ONE (09:56)
[2017-07-08] MEDS ORDERED: DEXAMETHASONE SOD INJ 4 MG/ML VIAL ONE (09:56)
[2017-07-08] MEDS ORDERED: MIDAZOLAM HCL 1 MG/ML 2ML VIAL ONE (09:56)
[2017-07-08] MEDS ORDERED: ATROPINE SULFATE 0.1 MG/ML 5ML SYR IV PRN (10:00)
[2017-07-08] MEDS ORDERED: EpHEDrine SULFATE INJ 50 MG/ML AMP IV PRN (10:00)
[2017-07-08] MEDS ORDERED: ONDANSETRON INJ 2 MG/ML 2 ML VIAL IV PRN (10:00)
[2017-07-08] MEDS ORDERED: FENTANYL CITRATE INJ 50 MCG/1 ML 2 ML VIAL IV PRN (10:00)
[2017-07-08] MEDS ORDERED: SCOPOLAMINE 1.5 MG TDSY TD ONE (10:10)
[2017-07-08] MEDS ORDERED: NURSING VERBAL MED ORDER ONE (10:15)
[2017-07-08] MEDS ORDERED: CONRAY 30% 150ML BOTTLE ONE (10:40)
--- NOTE | 2017-07-08 11:12 | History & Physical Bridge Note ---
H&P Re-Evaluation Bridge Note: I have examined the patient, reviewed the History & Physical and in the interval since the performance of the History & Physical I have noted the following changes of clinical significance: No changes noted
[2017-07-08] MEDS ORDERED: EpHEDrine SULFATE INJ 50 MG/ML AMP ONE (11:37)
[2017-07-08] MEDS ORDERED: OXYC7.5T65 PO (12:20)
[2017-07-08] MEDS ORDERED: CEPH500C PO (12:20)
[2017-07-08] MEDS ORDERED: PHEN-775 PO (12:20)
--- NOTE | 2017-07-08 12:34 | Discharge Instructions ---
Discharge Instructions Date of Service Jul 08, 2017. Admission Reason for Admission: Stones Discharge Discharge Diagnosis / Problem: Stone Discharge Goals Goal(s): Decrease discomfort, Improve function Activity Recommendations Activity Limitations: resume your previous activity Lifting Limitations: none Exercise/Sports Limitations: as tolerated Shower/Bathe: no limitations . Instructions / Follow-Up Instructions / Follow-Up May have blood in urine or discomfort. Call if any fevers or chills. Call if any concerns. May have pelvic or urinary discomfort. Current Hospital Diet Hospital Diet(s): Regular Diet Discharge Diet Recommended Diet: Regular Diet Procedures Procedures Performed: Right Cystoscopy, Ureteroscopy, Laser Lithotripsy; Stent Exchange, [employer] Pylogram Pending Studies Studies pending at discharge: no Medical Emergencies . Who to Call and When: Medical Emergencies: If at any time you feel your situation is an emergency, please call 911 immediately. . Non-Emergent Contact Non-Emergency issues call your: Primary Care Provider, Urologist Call Non-Emergent contact if: you have a fever, temperature is above 101, temperature is above 101.5, your pain is not controlled, your pain is worsening , your pain is unusual for you . . "Provider Documentation" section prepared by Kapil Stevens,. . VTE Core Measure Inpt VTE Proph given/why not?: Omar Kiran, SCD's
--- NOTE | 2017-07-08 12:42 | DIAGNOSTIC IMAGING REPORT ---
RETROGRADE INCLUDES KUB HISTORY: LASER LITHOTRIPSY, RETROGRADE AND RIGHT STENT PLACEMENT FLUOROSCOPY TIME: 28 seconds FINDINGS: 4 fluoroscopic spot images were submitted for review. Initial images demonstrate a guidewire and retrograde opacification of the right renal collecting system. This is followed by placement of a right ureteral stent. The stent appears to be in good position. IMPRESSION: Fluoroscopy provided for right ureteral stent placement.. Electronically signed by: Marcelino Rivera M.D. 07/08/2017 12:41 PM Dictated Date/Time: 07/08/2017 12:41 PM
--- NOTE | 2017-07-08 12:42 | [facility] Operative Report ---
Operative Report Operative Date Jul 08, 2017. Pre-Operative Diagnosis Right ureteral and renal stones Post-Operative Diagnosis same as pre-operative Procedure(s) Performed Right Cystoscopy, Ureteroscopy, Laser Lithotripsy; Stent Exchange, [employer] Pylogram Surgeon Dr. Kapil Stevens Vinegar Maker Surgeon(s) None Estimated Blood Loss none Findings Large stone in lower pole of right kidney Specimens none per surgeon Drains 6x24 Double J on Right Anesthesia General Complication(s) None Disposition Recovery Room / PACU Indications Obstructing stone with large right stone. Risks and benefits discussed at length. Patient agreeable and consented. Description of Procedure Patient was consented and brought back to the operating room. Patient was placed under anesthesia in the supine position. Patient was prepped and draped in the regular sterile fashion. A time out was completed. A 30degree Cystoscope was placed into the bladder and the entire bladder was examined. The UO's were identified with a right stent in place. The right stent was grasped and partially removed and a wire was placed. With the wire in place a rigid ureteroscope was selected and taken to the proximal ureter. No masses or stones were appreciated. The scope was removed and a second wire placed followed by a ureteral access sheath. The Flexible ureteroscope was selected and taken to the renal pelvis. Large stone in lower pole was discovered and pulverized to dust and small fragments with a laser. The stone adequately treated the entire pelvis was examined. No residual stone was discovered. Contrast was placed into the renal pelvis through the scope for a retrograde pyelogram and the scope was slowly removed keeping the safety wire in place. With the wire in place, a 6 x [24] Double J stent was placed. It was confirmed with fluoroscopy. With the stent in place, the bladder was emptied. The scope was removed. The patient was cleaned, aroused from anesthesia, and transferred to the pacu in stable condition having tolerated the procedure well with no complications. I was present and participated in all aspects of the procedure. The patient will be monitored in the PACU until transferred. I attest to the content of the Intraoperative Record and any orders documented therein. Any exceptions are noted below.
[2017-07-08] MEDS ORDERED: OXYCODONE/ACETAMINOPHEN 7.5-325 TAB PO PRN (12:45)
--- NOTE | 2017-07-08 13:08 | Anesthesiology Progress Note ---
Anesthesia Post Op Note Date & Time Jul 08, 2017 at 13:07 Vital Signs Pain Intensity: 0 Vital Signs Past 12 Hours Date Time Temp Pulse Resp B/P (MAP) Pulse Ox O2 Delivery O2 Flow Rate FiO2 07/08/17 12:55 80 18 128/81 95 Nasal Cannula 4 07/08/17 12:45 79 18 128/80 99 Oxymask 10 07/08/17 12:35 80 18 134/83 99 Oxymask 10 07/08/17 12:29 36.4 86 14 141/87 99 Oxymask 10 07/08/17 09:44 36.8 76 18 142/60 (87) 94 Room Air Notes Mental Status: alert / awake / arousable, participated in evaluation Pt Amnestic to Procedure: Yes Nausea / Vomiting: adequately controlled Pain: adequately controlled Airway Patency, RR, SpO2: stable & adequate BP & HR: stable & adequate Hydration State: stable & adequate Anesthetic Complications: no major complications apparent
[2017-07-08 13:20] VITALS: BP 115/65; PULSE 72; TEMP 36.7; O2SAT 92
[2017-07-08 13:55] VITALS: BP 106/53; PULSE 94; TEMP 36.6; O2SAT 94
[2017-07-08] MEDS ORDERED: CHECK SCOPOLAMINE PATCH PLACEMENT SCH (16:00)
== END 2017-07-08 14:10 | disposition home or self-care (01) ==
LOC: C.ACU 09:08
PROVIDERS: ATTEND Urology
DX: N20.1 Calculus of ureter (principal); N20.0 Calculus of kidney; N10 Acute pyelonephritis; Z90.49 Acquired absence of other specified parts of digestive tract; Z68.27 Body mass index [BMI] 27.0-27.9, adult

== ENCOUNTER → 2017-07-14 | Day surgery (SDC) | payer BC ==
[2017-05-20 08:07] VITALS: BMI 27.0
[2017-06-07 13:30] VITALS: Ht 162.6 cm; Wt 72.7 kg
[~2017-07-14] VITALS: Ht 162.6 cm; Wt 72.7 kg
[~2017-07-14] MED LIST changes: +500ML BSS 0.3ML EPI 1:1000PF IRRIG ONE; +ACETAMINOPHEN 325 MG TAB PO PRN; +AMVISC PLUS 0.8ML SYRINGE INT OCU ONE; +ATROPINE SULFATE 0.1 MG/ML 5ML SYR IV PRN; +AcetaZOLAMIDE 250 MG TAB PO SCH; +BETAXOLOL HCL 0.25% OP SUSP PER DROP CHARGE OPR SCH; +BRIMONIDINE TART 0.2% OP SOLN PER DROP CHARGE ONE; +BSS FLUSH ONE; -CEFAZOLIN 2000MG IV PUSH 10 ML IV SCH; +CEPH500C PO; +CYCLOPENTOLATE HCL 1% OP SOLN PER DROP CHARGE OPR SCH; +ENDOCOAT 0.85ML SYRINGE INT OCU ONE; +EpHEDrine SULFATE INJ 50 MG/ML AMP IV PRN; +EpINEphrine INJ 1MG/ML AMP 1 MG/ML AMP ONE; -LACTATED RINGER'S 1000ML 1,000 ML IV SCH; +LACTATED RINGER'S 1000ML 500 ML IV SCH; +LIDOCAINE 4% OP SOLN DROP CHARGE ONE; +LIDOCAINE 4% OP SOLN DROP CHARGE OPR SCH; +LIDOCAINE HCL 1% MPF 2 ML VIAL ONE; +MIDAZOLAM HCL 1 MG/ML 2ML VIAL ONE; +MIX: 4ML BSS 1ML EPI 1:1000 PF INSTIL ONE; +MOXIFLOXACIN OPH SOLN PER DROP CHARGE ONE; +MOXIFLOXACIN OPH SOLN PER DROP CHARGE OPR SCH; +OCUCOAT 1 ML SOLN IO ONE; +OXYC7.5T65 PO; +PHEN-775 PO; +PHENYLEPHRINE HCL 2.5% OP SOLN PER DROP CHARGE OPR SCH; +POVIDONE-IODINE OP SOLN 30 ML BTL ONE; +PROPARACAINE 0.5% OP SOLN PER DROP CHARGE OPR SCH; +TOBRAMYCIN/DEXAMETHASONE OPH OINT PER APPLN CHARGE ONE; +TROPICAMIDE 0.5% OP SOLN 15 ML BTL OPR SCH; +TROPICAMIDE 1% OP SOLN PER DROP CHARGE OPR SCH
[2017-07-14] MEDS: PHENYLEPHRINE HCL 2.5% OP SOLN PER DROP CHARGE OPR SCH ×2 (08:25→08:30)
[2017-07-14] MEDS: TROPICAMIDE 1% OP SOLN PER DROP CHARGE OPR SCH ×2 (08:26→08:31)
[2017-07-14] MEDS: MOXIFLOXACIN OPH SOLN PER DROP CHARGE OPR SCH ×2 (08:28→08:33)
[2017-07-14] MEDS: CYCLOPENTOLATE HCL 1% OP SOLN PER DROP CHARGE OPR SCH ×2 (08:28→08:32)
--- NOTE | 2017-07-14 09:34 | Discharge Instructions-SurgCtr ---
Discharge Instructions Date of Service Jul 14, 2017. Visit Reason for Visit: Right Cataract Discharge Discharge Diagnosis / Problem: lens implant right eye Discharge Goals Goal(s): Improve function Activity Recommendations Activity Limitations: resume your previous activity Lifting Limitations: no more than 10 pounds Exercise/Sports Limitations: gradually increase as tolerated May Resume Sexual Activity: when tolerated Shower/Bathe: tomorrow Driving or Machine Use: resume 1 day after discharge Anesthesia . Post Anesthesia Instructions: If you have had General Anesthesia or IV Sedation: * Do not drive today. * Resume driving when surgeon permits. * Do not make important decisions or sign legal documents today. * Call surgeon for: 1. Temperature elevations greater than 101 degrees F. 2. Uncontrollable pain. 3. Excessive bleeding. 4. Persistent nausea and vomiting. 5. Medication intolerance (nausea, vomiting or rash). * For nausea and vomiting use only clear liquids such as: tea, soda, bouillon until nausea subsides, then gradually increase diet as tolerated. * If you have any concerns or questions, call your surgeon's office. If physician is unavailable and it is an emergency, call 911 or go to the nearest emergency room. . Instructions / Follow-Up Instructions / Follow-Up ACTIVITY RECOMMENDATIONS: * Light activities. * Mild irritation and blurred vision are common for the first few days. * You may walk outside, read, watch television. * Redness around the white part of the eye is common. MEDICATIONS: Resume previous medications unless instructed otherwise by your surgeon. * Take white Diamox (Acetazolamide) tablet at 1 pm today. Start all eye drops at 1 pm today: * Eye drops (today and tomorrow): Prednisone - one drop in operative eye every 3 hours while awake Ofloxacin - one drop in operative eye every 3 hours while awake SPECIAL CARE INSTRUCTIONS: * Tape plastic shield over eye to sleep at night. Call your doctor at with any concerns or problems. FOLLOW UP VISIT: Follow-up with Dr Oneill at [place] office as scheduled. Diet Recommendations Home Diet: no limitations Procedures Procedures Performed: cataract extraction with lens implant Pending Studies Studies pending at discharge: no Medical Emergencies . Who to Call and When: Medical Emergencies: If at any time you feel your situation is an emergency, please call 911 immediately. . Non-Emergent Contact Non-Emergency issues call your: Sql [employer] Developer Call Non-Emergent contact if: your pain is not controlled [phone] . . "Provider Documentation" section prepared by Eddie Oneill. .
--- NOTE | 2017-07-14 09:37 | [facility] Operative Report ---
Operative Report Date of Service Jul 14, 2017. Operative Report 1. PREOPERATIVE DIAGNOSIS: Pre Senile nuclear cataract, right eye. 2. POSTOPERATIVE DIAGNOSIS: Pre Senile nuclear cataract, right eye. 3. PROCEDURE: Phacoemulsification of right cataract with posterior chamber lens implant, type [employer], model MI60L, power +22.5 diopters. ANESTHESIA: Local standby. SURGEON: Dr. Oneill. COMPLICATIONS: None. OPERATING TIME: 10 minutes. 4. OPERATION AND FINDINGS: DESCRIPTION OF PROCEDURE: The right pupil was dilated. The anesthetic was administered using a topical technique. The right eye was prepped and draped. A speculum was placed. A clear corneal incision was formed. The chamber was filled with Amvisc Plus and Endocoat. Epinephrine solution was used. A paracentesis was placed. A capsulorrhexis was performed. The nucleus was hydrodissected. The lens was removed with phacoemulsification. Time was 3.62 seconds. The aspiration unit was used to remove the cortex. The capsule was filled with Amvisc Plus. The lens implant was folded and placed into the capsule. The incision was hydrated. The Amvisc was aspirated. The wound was secure. The chamber was deep. The pupil was round. Brimonidine, TobraDex ointment and Vigamox solution were placed. The speculum was removed. The patient was returned to the Recovery Room in stable condition. I attest to the content of the Intraoperative Record and any orders documented therein. Any exceptions are noted below. The scribe's documentation has been prepared in my presence, under my direction and personally reviewed by me in its entirety. I confirm that the note above accurately reflects all work, treatment, procedures, and medical decision making performed by me. I personally scribed for Eddie Oneill M.D. ([email or web address]) on 07/14/17 at 09:37. Electronically submitted by Liliya Avalos ([email or web address]).
[2017-07-14 10:03] VITALS: BP 128/74; PULSE 70; TEMP 36.3; O2SAT 96
--- NOTE | 2017-07-14 10:04 | Anesthesiology Progress Note ---
Anesthesia Post Op Note Date & Time Jul 14, 2017 at 10:04 Vital Signs Pain Intensity: 0 Vital Signs Past 12 Hours Date Time Temp Pulse Resp B/P (MAP) Pulse Ox O2 Delivery O2 Flow Rate FiO2 07/14/17 09:38 36.5 67 16 144/80 (101) 97 Room Air 07/14/17 08:05 36.7 77 16 159/98 (118) Room Air Notes Mental Status: alert / awake / arousable, participated in evaluation Nausea / Vomiting: adequately controlled Pain: adequately controlled Airway Patency, RR, SpO2: stable & adequate BP & HR: stable & adequate Hydration State: stable & adequate Anesthetic Complications: no major complications apparent
== END | disposition home or self-care (01) ==
LOC: X.SURG 07:10
PROVIDERS: ATTEND Specialist
DX: H25.031 Anterior subcapsular polar age-related cataract, right eye (principal); Z90.49 Acquired absence of other specified parts of digestive tract; K21.9 Gastro-esophageal reflux disease without esophagitis; Z87.442 Personal history of urinary calculi

== ENCOUNTER → 2017-08-26 | Outpatient (CLI) | payer BC ==
--- NOTE | 2017-08-26 08:26 | DIAGNOSTIC IMAGING REPORT ---
EXAMINATION: RENAL ULTRASOUND CLINICAL HISTORY: Nephrolithiasis COMPARISON STUDY: CT scan dated 05/30/2017 FINDINGS: The right kidney measures 11.3 cm. The left kidney measures 12 cm. There is no evidence of hydronephrosis. There is a 2.5 cm left renal cyst. There is a tangential 17 mm left renal cyst. There are few echogenic foci within each kidney, possibly representing calculi. No bladder abnormalities are visualized. Bilateral ureteral jets were visualized. IMPRESSION : 1. No evidence of hydronephrosis 2. Left renal cysts 3. Suspected nephrolithiasis 4. No bladder abnormalities identified. Electronically signed by: Francisco Javier Clemons M.D. 08/26/2017 8:25 AM Dictated Date/Time: 08/26/2017 8:22 AM
== END | disposition home or self-care (01) ==
LOC: C.ULTRBC 07:31
PROVIDERS: ATTEND Urology
DX: N20.0 Calculus of kidney (principal); N28.1 Cyst of kidney, acquired